=== PATIENT | female | born 1945 | race Caucasian/White ===

== ENCOUNTER → 2017-11-16 14:22 | Outpatient (CLI) | payer OTHER, MEDICARE, SELFPAY ==
[2017-11-16 14:51] LABS: Hemoglobin 13.2 g/dL (12.0-16.0); Mean Corpuscular HGB Conc 32.1 % (30-36); Mean Corpuscular Hemoglobin 24.4 PG (26-34); Platelet Count 171 X10^3/uL (150-400); Red Blood Cell Count 5.39 X10^6/uL (4.0-5.2); Red Cell Distribution Width 25.7 % (11.6-14.8); White Blood Cell Count 5.4 X10^3/uL (4.5-11.0)
[2017-11-16 14:52] LABS: HEMOLYSIS < 15 (0-50); Iron 102 ug/dL (37-170)
[2017-11-16 14:53] LABS: BUN Creatinine Ratio 23.3 (6-22); Blood Urea Nitrogen 14 mg/dL (7-17); Calcium 10.3 mg/dL (8.4-10.2); Carbon Dioxide 28 mmol/L (22-32); Chloride 101 mmol/L (98-107); Estimated Glomerular Filt Rate > 60.0 mL/min (>60); Glucose 87 mg/dL (80-110); HEMOLYSIS < 15 (0-50); Potassium 4.4 mmol/L (3.4-5.1); Sodium 139 mmol/L (137-145)
[2017-11-16 15:03] LABS: Percent Iron Saturation 29 % (15-50); Total Iron Binding Capacity 350 ug/dL (265-497); Transferrin 278 mg/dL (206-381)
[2017-11-16 15:25] LABS: Anisocytosis 2+; Hypochromasia 1+
== END ==
PROVIDERS: Visit Provider Internal Medicine
DX: D50.9 Iron deficiency anemia, unspecified (principal); E11.9 Type 2 diabetes mellitus without complications; E83.52 Hypercalcemia
CPT/HCPCS: 36415; 80048; 83540; 83550; 85027

== ENCOUNTER → 2018-03-13 07:55 | Outpatient (CLI) | payer OTHER, MEDICARE, SELFPAY ==
[2018-03-13 09:01] LABS: Hematocrit 43.5 % (36-46); Hemoglobin 14.6 g/dL (12.0-16.0); Mean Corpuscular HGB Conc 33.4 % (30-36); Mean Corpuscular Volume 86.8 fL (80-100); Platelet Count 209 X10^3/uL (150-400); Red Blood Cell Count 5.02 X10^6/uL (4.0-5.2); Red Cell Distribution Width 13.3 % (11.6-14.8); White Blood Cell Count 5.5 X10^3/uL (4.5-11.0)
[2018-03-13 09:05] LABS: Alanine Aminotransferase 16 IU/L (9-52); Albumin 4.5 g/dL (3.5-5.0); Albumin Globulin Ratio 1.6 (1.0-2.8); Alkaline Phosphatase 67 U/L (38-126); Aspartate Aminotransferase 21 IU/L (14-36); Bilirubin Total 0.6 mg/dL (0.2-1.3); Blood Urea Nitrogen 12 mg/dL (7-17); Carbon Dioxide 28 mmol/L (22-32); Chloride 101 mmol/L (98-107); Estimated Glomerular Filt Rate > 60.0 mL/min (>60); Globulin 2.8 g/dL (1.7-4.1); Glucose 98 mg/dL (80-110); HEMOLYSIS < 15 (0-50); Potassium 4.4 mmol/L (3.4-5.1); Sodium 138 mmol/L (137-145); Total Protein 7.3 g/dL (6.3-8.2)
[2018-03-13 12:04] LABS: HEMOLYSIS 16 (0-50); Iron 73 ug/dL (37-170)
[2018-03-13 12:14] LABS: Percent Iron Saturation 21 % (15-50); Total Iron Binding Capacity 341 ug/dL (265-497)
[2018-03-13 12:24] LABS: Transferrin 293 mg/dL (206-381)
== END ==
PROVIDERS: PCP Internal Medicine; Visit Provider Internal Medicine
DX: D50.9 Iron deficiency anemia, unspecified (principal); E11.9 Type 2 diabetes mellitus without complications
CPT/HCPCS: 36415; 80053; 83036; 83540; 83550; 85027

== ENCOUNTER → 2018-03-15 11:16 | Outpatient (CLI) | payer OTHER, MEDICARE, SELFPAY ==
[2018-03-15 12:17] LABS: Add Manual Diff / Slide Review NO; Basophils Percent Auto 2.3 % (0-2); Eosinophils Percent Auto 1.5 % (2-4); Hematocrit 42.9 % (36-46); Hemoglobin 14.2 g/dL (12.0-16.0); Lymphocytes Percent Auto 36.4 % (25-40); Mean Corpuscular HGB Conc 33.1 % (30-36); Mean Corpuscular Hemoglobin 28.8 PG (26-34); Mean Corpuscular Volume 86.9 fL (80-100); Monocytes Percent Auto 6.8 % (3-14); Neutrophils Absolute Auto 2600 /uL (3000-5900); Platelet Count 209 X10^3/uL (150-400); Red Blood Cell Count 4.94 X10^6/uL (4.0-5.2); Red Cell Distribution Width 13.2 % (11.6-14.8); White Blood Cell Count 4.9 X10^3/uL (4.5-11.0)
[2018-03-15 12:44] LABS: Alanine Aminotransferase 16 IU/L (9-52); Albumin 4.4 g/dL (3.5-5.0); Albumin Globulin Ratio 1.7 (1.0-2.8); Alkaline Phosphatase 59 U/L (38-126); Aspartate Aminotransferase 20 IU/L (14-36); Bilirubin Total 0.8 mg/dL (0.2-1.3); Blood Urea Nitrogen 12 mg/dL (7-17); Calcium 10.4 mg/dL (8.4-10.2); Carbon Dioxide 31 mmol/L (22-32); Chloride 100 mmol/L (98-107); Estimated Glomerular Filt Rate > 60.0 mL/min (>60); Globulin 2.6 g/dL (1.7-4.1); Glucose 95 mg/dL (80-110); HEMOLYSIS < 15 (0-50); Potassium 4.6 mmol/L (3.4-5.1); Sodium 141 mmol/L (137-145)
[2018-03-16 14:47] LABS: Parathyroid Hormone Int 40 pg/mL (14-64)
== END ==
PROVIDERS: PCP Internal Medicine; Visit Provider Internal Medicine
DX: E11.9 Type 2 diabetes mellitus without complications (principal); E83.52 Hypercalcemia; E78.5 Hyperlipidemia, unspecified
CPT/HCPCS: 36415; 80053; 83036; 83970; 85025

== ENCOUNTER → 2018-04-10 10:17 | Outpatient (CLI) | payer OTHER, MEDICARE, SELFPAY ==
--- NOTE | 2018-04-10 10:20 | DI.MG.S_ITS ---
BILATERAL DIGITAL SCREENING MAMMOGRAM 3D/2D WITH CAD: 04/10/2018 CLINICAL: Routine screening. Comparison is made to exams dated: 03/04/2017 mammogram, 03/01/2015 mammogram, and 09/26/2013 mammogram - [facility]. The tissue of both breasts is heterogeneously dense. This may lower the sensitivity of mammography. Current study was also evaluated with a Computer Aided Detection (CAD) system. No significant masses, calcifications, or other findings are seen in either breast. There has been no significant interval change. IMPRESSION: NEGATIVE There is no mammographic evidence of malignancy. A 1 year screening mammogram is recommended. This exam was interpreted at Station ID: [id number]. NOTE: For mammograms, a report in lay terms will be sent to the patient. Approximately 15% of breast malignancies will not be visualized mammographically. In the management of a palpable breast mass, a negative mammogram must not discourage biopsy of a clinically suspicious lesion. Electronically Signed By: Kaylene amador/patria:04/10/2018 13:27:58 copy to: Nilay Logan copy to: Matt aDng letter sent: Normal Exam ACR BI-RADS Category 1: Negative 3341F
== END ==
PROVIDERS: PCP Internal Medicine
DX: Z12.31 Encounter for screening mammogram for malignant neoplasm of breast (principal)
CPT/HCPCS: 77063; 77067

== ENCOUNTER → 2018-08-14 09:04 | Outpatient (CLI) | payer OTHER, MEDICARE, SELFPAY ==
[2018-08-14 10:21] LABS: Influenza A and B by PCR Rapid Negative (Negative)
== END ==
PROVIDERS: PCP Internal Medicine; Visit Provider Physician Assistant
DX: R68.89 Other general symptoms and signs (principal)
CPT/HCPCS: 87400

== ENCOUNTER → 2018-09-08 08:17 | Outpatient (CLI) | payer OTHER, MEDICARE, SELFPAY ==
[2018-09-08 10:12] LABS: Alanine Aminotransferase 22 IU/L (9-52); Albumin 4.1 g/dL (3.5-5.0); Albumin Globulin Ratio 1.5 (1.0-2.8); Alkaline Phosphatase 59 U/L (38-126); Aspartate Aminotransferase 20 IU/L (14-36); BUN Creatinine Ratio 22.9 (6-22); Bilirubin Total 0.4 mg/dL (0.2-1.3); Blood Urea Nitrogen 16 mg/dL (7-17); Carbon Dioxide 29 mmol/L (22-32); Chloride 103 mmol/L (98-107); Cholesterol 158 mg/dL (140-199); Estimated Glomerular Filt Rate > 60.0 mL/min (>60); Globulin 2.7 g/dL (1.7-4.1); Glucose 87 mg/dL (80-110); HDL Cholesterol 79 mg/dL (40-60); HEMOLYSIS < 15 (0-50); LDL Cholesterol Calculated 65 mg/dL (<100); Potassium 4.7 mmol/L (3.4-5.1); Sodium 139 mmol/L (137-145); Total Protein 6.8 g/dL (6.3-8.2); Triglycerides 69 mg/dL (35-150)
== END ==
PROVIDERS: PCP Internal Medicine; Visit Provider Internal Medicine
DX: E11.9 Type 2 diabetes mellitus without complications (principal); E78.5 Hyperlipidemia, unspecified; E83.52 Hypercalcemia
CPT/HCPCS: 36415; 80053; 80061; 83036

== ENCOUNTER 2018-09-10 21:57 | Emergency (ER) | payer OTHER, MEDICARE, SELFPAY ==
[2018-09-10 22:12] VITALS: BP 130/98; PULSE 85; RESP 16; TEMP 36.7; O2SAT 98; BMI 24.4
--- NOTE | 2018-09-10 23:08 | ED.WOUNDLAC ---
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 She was concerned with bleeding was stopping is now stopped. Related Data Home Medications Medication Instructions Recorded Confirmed ASPIRIN (Aspirin Ec) 81 mg PO QDAY #0 09/03/09 07/20/18 CHOLECALCIFEROL (VITAMIN D3) 2,000 iu PO QDAY #0 09/03/09 07/20/18 (Vitamin D3) [AYLIN RED FISH OIL] 1 cap PO QDAY #0 03/12/11 07/20/18 fexofenadine 60 mg PO Q DAY #30 10/08/12 07/20/18 gabapentin 300 mg capsule 300 mg PO BEDTIME cap 08/14/18 Previous Rx's Medication Instructions Recorded Lancets 0 dev SEE INSTRUCTIONS #100 06/25/16 Glucose: Home Monitoring Kit kit #1 09/10/16 pravastatin 20 mg tablet 20 mg PO HS #90 tab 11/20/17 azelastine 0.15 % (205.5 mcg) 1 spray NASAL BID #30 ml 03/15/18 nasal spray metformin ER 500 mg 500 mg PO BEDTIME #90 tab 07/08/18 tablet,extended release 24 hr bupropion HCl XL 300 mg 24 hr 300 mg PO QDAY #90 tab 07/09/18 tablet, extended release omeprazole 20 mg capsule,delayed 20 mg PO DAILY #90 cap 07/21/18 release fluconazole 150 mg tablet 150 mg PO ONCE #2 tab 08/23/18 Allergies Allergy/AdvReac Type Severity Reaction Status Date / Time Sulfa (Sulfonamide Allergy Mild Verified 08/14/18 09:24 Antibiotics) levofloxacin AdvReac Intermediate TENDON AND Verified 08/14/18 09:24 MUSCLE PAIN codeine AdvReac Mild GI UPSET Verified 08/14/18 09:24 morphine AdvReac Mild N/V Verified 08/14/18 09:24 oxycodone AdvReac Nausea Verified 08/14/18 09:24 Review of Systems Review of Systems GENERAL: Denies chills,fever HEENT: Denies throat pain RESPIRATORY: Denies dyspnea, cough, wheezing CARDIOVASCULAR: Denies chest pain, palpitations GASTROINTESTINAL: Denies nausea, vomiting MUSCULOSKELETAL: Denies extremity pain, injury SKIN: See HPI NEUROLOGIC: Denies weakness, dizziness, headache, numbness 8 point review of systems is negative except for those stated above and HPI PFSH Medical History Hyperlipidemia (Chronic 09/10/16) Diabetes mellitus type II, controlled (Chronic 2011) Hypercalcemia (Chronic 09/27/15) Iron deficiency anemia (Chronic 09/11/17) Asthma (Chronic 1946) Osteoarthritis (Chronic ~1999) RLS (restless legs syndrome) (Chronic) Abnormal LFTs (Chronic) GERD (gastroesophageal reflux disease) (Chronic 1989) Raynaud's syndrome (Chronic 03/12/11) Menopause present (Chronic 03/12/11) Chicken pox (Resolved 1948) Eczema (Resolved 1947) Gastric polyps (Resolved 2010) Measles (Resolved 1951) Mumps (Resolved 1952) Radicular pain of right lower back (Resolved 04/11/15) History of gastric polyp (Inactive) Surgical History Anesthesia complication (Resolved) Status post arthroscopy (Resolved 01/2014) Status post arthroscopy (Resolved 2010) Status post cholecystectomy (Resolved 2006) Status post colonoscopy (Resolved 2011) Status post hysterectomy (Resolved 2004) Family History Brother Kidney disease Diabetes mellitus Father Cancer Mother Cancer Heart disease High cholesterol Liver failure Grandfather Diabetes mellitus Grandmother Pneumonia Grandmother Pneumonia Social History marital status: number of children: 5 household members: spouse lives independently: Yes caregiver/support person: No housing: house pets and animals: Yes education level: college ([employer]) occupational status: employed current occupational exposures/hazards: Yes harjeet/confucianism: [employer] travel history: recent ([place]) leisure activities: exercise (Walking), reading and other (Sewing) Smoking Status: Never smoker Tobacco: How many years used: 0 quit status: quit date established (Never Started) second hand exposure: Yes alcohol intake: current (daily) substance use type: does not use Family History Brother Kidney disease Diabetes mellitus Father Cancer Mother Cancer Heart disease High cholesterol Liver failure Grandfather Diabetes mellitus Grandmother Pneumonia Grandmother Pneumonia Social History marital status: number of children: 5 household members: spouse lives independently: Yes caregiver/support person: No housing: house pets and animals: Yes education level: college ([employer]) occupational status: employed current occupational exposures/hazards: Yes harjeet/confucianism: [employer] travel history: recent ([place]) leisure activities: exercise (Walking), reading and other (Sewing) Smoking Status: Never smoker Tobacco: How many years used: 0 quit status: quit date established (Never Started) second hand exposure: Yes alcohol intake: current (daily) substance use type: does not use Exam Initial Vital Signs Initial Vital Signs: Vital Signs Temperature 98.1 F 09/10/18 22:12 Pulse Rate 85 09/10/18 22:12 Respiratory Rate 16 09/10/18 22:12 Blood Pressure 130/98 H 09/10/18 22:12 Pulse Oximetry 98 09/10/18 22:12 GENERAL: Well-appearing, well-nourished and in no acute distress. CARDIOVASCULAR: peripheral pulses in tact, cap refill <2 sec RESPIRATORY: No respiratory distress, speaks in full sentences without difficulty EXTREMITIES: Normal range of motion, no clubbing or edema. Neurovascularly intact NEUROLOGICAL: Cranial nerves II through XII grossly intact. Normal gait and speech. SKIN: Left middle finger laceration 0.25cm by nail not on nail bed bleeding controlled Course Vital Signs - 8 hr 09/10/18 22:12 09/10/18 23:16 Temperature 98.1 F Pulse Rate 85 74 Respiratory Rate 16 16 Blood Pressure 130/98 H Blood Pressure [Right Arm] 161/73 H Pulse Oximetry 98 99 MDM - Wound/Laceration MDM Narrative Medical decision making narrative: No need for sutures. Band-Aid is placed Discharge Plan Departure Patient Disposition: Home Clinical Impression: Laceration of left middle finger Qualifiers: Encounter type: initial encounter Damage to nail status: without damage Foreign body presence: without foreign body Qualified Code(s): S61.213A - Laceration without foreign body of left middle finger without damage to nail, initial encounter Discharge Date/Time: 09/10/18 23:15 Interventions: ED Discharge Assessment Last Done: 09/10/18 23:38 Instructions: DI for Minor Laceration Activity Restrictions/Additional Instructions: *You have been diagnosed with minor left middle finger laceration *What to do: I apply pressure if still bleeding. Keep clean with soap and water. May apply Neosporin twice daily if needed *Continue to take medications as directed *Follow up with your primary care provider in 2-3 days *Return to ER if you should have redness, pus, swelling, increased pain or any new, worsening or concerning symptoms Prescriptions: No Action gabapentin [Neurontin] 300 mg capsule 300 mg PO BEDTIME RF: 0 CHOLECALCIFEROL (VITAMIN D3) (Vitamin D3) 2,000 iu PO QDAY Qty: 0 RF: 0 ASPIRIN (Aspirin Ec) 81 mg PO QDAY Qty: 0 RF: 0 [AYLIN RED FISH OIL] 1 cap PO QDAY Qty: 0 RF: 0 fexofenadine 60 MG tablet 60 mg PO Q DAY Qty: 30 RF: 3 Lancets SEE INSTRUCTIONS Qty: 100 RF: PRN Glucose: Home Monitoring Kit Qty: 1 RF: 0 pravastatin [Pravachol] 20 mg tablet 20 mg PO HS Qty: 90 RF: 3 metformin [Glucophage XR] 500 mg tablet extended release 24 hr 500 mg PO BEDTIME Qty: 90 RF: 3 bupropion HCl 300 mg tablet extended release 24 hr 300 mg PO QDAY Qty: 90 RF: 1 omeprazole 20 mg capsule,delayed release(DR/EC) 20 mg PO DAILY Qty: 90 RF: 3 fluconazole 150 mg tablet 150 mg PO ONCE Qty: 2 RF: 0 azelastine 0.15 % (205.5 mcg) spray,non-aerosol 1 spray NASAL BID Qty: 30 RF: 2 Referrals: Monty Longo MD [Primary Care Provider] -
[2018-09-10 23:16] VITALS: BP 161/73; PULSE 74; RESP 16; O2SAT 99
--- NOTE | 2018-09-10 23:39 | PC.NURSE ---
Her wound was cleaned with soap and water at home applied dressing before discharge.
== END 2018-09-10 23:15 | disposition home or self-care (01) ==
PROVIDERS: Emergency Provider Emergency Medicine; PCP Internal Medicine
DX: S61.213A Laceration without foreign body of left middle finger without damage to nail, initial encounter (principal); W26.8XXA Contact with other sharp object(s), not elsewhere classified, initial encounter
CPT/HCPCS: 99282; 99283

== ENCOUNTER → 2018-12-16 12:33 | Outpatient (CLI) | payer OTHER, MEDICARE, SELFPAY ==
--- NOTE | 2018-12-16 12:36 | DI.RAD.S_ITS ---
PROCEDURE: FL KNEE INJECTION MR/CT LT COMPARISON: [facility], KNEE INJECTION FOR MR/CT, 01/13/2014, 9:10. INDICATIONS: INTERNAL DERANGEMENT OF LEFT KNEE The indications, alternatives, benefits, risks, and complications of the procedure were explained to the patient. Written informed consent was obtained and placed in the chart. The knee was examined fluoroscopically, and a site chosen for knee joint injection. The skin was prepped and draped in the usual fashion and 1% Lidocaine infiltrated from the skin down to the articular surface. A hypodermic needle was then introduced into the joint and iodinated contrast media was instilled to confirm the intra-articular needle tip placement. This was followed by approximately 50 mL dilute solution of a gadolinium containing MR contrast agent. The needle was removed and a bandage was applied. An Andrew wrap was then applied around the knee joint to keep the contrast from collecting in the suprapatellar recess. The patient experienced no complications throughout the procedure and left the fluoroscopic suite in no apparent distress. FINDINGS: Single fluoroscopic spot image demonstrates intra-articular location of the injected iodinated contrast. IMPRESSION: Successful fluoroscopically guided administration of dilute Gadolinium solution into the knee joint for MR arthrogram. Dictated by: Neil Alarcon M.D. on 12/16/2018 at 14:44 Approved by: Neil Alarcon M.D. on 12/16/2018 at 14:45
--- NOTE | 2018-12-16 13:41 | DI.MRI.S_ITS ---
PROCEDURE: MR KNEE LT W CON INDICATIONS: INTERNAL DERANGEMENT OF LEFT KNEE TECHNIQUE: After the administration of 50 mL of dilute intra-articular Gadolinium contrast, sagittal T1 spin echo with fat saturation and PD fast spin echo with fat saturation, coronal T1 spin echo with and without fat saturation, coronal T2 fast spin echo with fat saturation, axial PD fast spin echo with fat saturation through the knee. COMPARISON: [facility], MR, KNEE WITHOUT CONTRAST, 03/01/2015, 15:51. [facility], CR, XR KNEE ARTHRITIC SERIES LT, 11/26/2018, 14:19. [facility], MR, KNEE WITH CONTRAST, 01/13/2014, 9:43. FINDINGS: Image quality: Excellent. Menisci: Diminutive appearance involving the body of the medial meniscus. There is also fraying of the posterior horn although no definite intrasubstance tear linear signal intensity is seen. Ill-defined macerated tear involving the free margin of the body of the lateral meniscus, extending into the anterior horn. Cruciate ligaments: Anterior cruciate ligament not well visualized and there is heterogeneous signal in its expected location however, this is probably unchanged since prior study. The posterior cruciate ligament appears grossly intact. There numerous adjacent periligamentous ganglion cysts Medial structures: The medial collateral ligament appears intact. The posterior oblique ligament, semimembranosus tendon insertions, oblique popliteal ligament, and meniscocapsular junction appear intact. Visualized portions of the pes anserinus tendons appear normal. No abnormal bursal fluid. Lateral structures: The lateral collateral ligament, long and short heads of the biceps femoris tendon appear intact. The popliteus tendon appears normal; the popliteofibular ligament appears intact. The posterosuperior and anteroinferior popliteomeniscal fascicles appear intact. The arcuate and fabellofibular ligaments appear intact around the lateral inferior geniculate artery. Iliotibial band appears normal. Anterior structures: Prepatellar and superficial infrapatellar subcutaneous edema/fluid. The quadriceps and patellar tendons appear intact. Patellar alignment is normal. No femoral trochlear dysplasia or ventral trochlear prominence. Bone and cartilage: No focal marrow contusion or discrete low signal fracture line. Within the medial compartment, areas of central full-thickness loss of the tibial and femoral articular cartilage. Within the lateral compartment, mild diffuse partial-thickness loss and surface fraying of the femoral and tibial cartilage. Within the patellofemoral compartment, full-thickness patellar and femoral trochlear articular cartilage loss. Subchondral marrow cystic changes and edema as before Joint space: No López's cyst. Ill-defined low signal somewhat curvilinear focus present within the anterior intercondylar notch which could represent arthrofibrosis and/or synovial hypertrophy. Low signal 1 cm loose body seen within the medial patellar recess, image 15 series 7. IMPRESSION: Diminutive appearance of the medial meniscus body and posterior horn suggestive of postoperative changes from prior partial meniscectomy. No definite intrasubstance gadolinium signal intensity to suggest recurrent tear. Complex macerated tear involving the free margin of the body of the lateral meniscus as above, although post operative appearance is in the differential. Please correlate with surgical history. Chronic sprain versus myxoid degeneration of the anterior cruciate ligament, although grossly unchanged since prior study. Severe degenerative joint disease as above. 1 cm loose body within the medial patellar recess. Ill-defined low signal synovial hypertrophy versus arthrofibrosis at the anterior intercondylar notch. The appearance may be in part due to prominent ligamentum mucosum. Dictated by: Neil Alarcon M.D. on 12/16/2018 at 15:12 Approved by: Neil Alarcon M.D. on 12/16/2018 at 15:41
== END ==
PROVIDERS: PCP Nurse Practitioner; Visit Provider Orthopaedic Surgery
DX: S83.272A Complex tear of lateral meniscus, current injury, left knee, initial encounter (principal); M17.12 Unilateral primary osteoarthritis, left knee
CPT/HCPCS: 27369; 73722; 77002

== ENCOUNTER → 2018-12-21 07:55 | Outpatient (CLI) | payer OTHER, MEDICARE, SELFPAY ==
[2018-12-21 09:10] LABS: Hematocrit 41.8 % (36-46); Hemoglobin 13.7 g/dL (12.0-16.0); Mean Corpuscular HGB Conc 32.8 % (30-36); Mean Corpuscular Hemoglobin 26.9 PG (26-34); Mean Corpuscular Volume 82.1 fL (80-100); Platelet Count 211 X10^3/uL (150-400); Red Blood Cell Count 5.09 X10^6/uL (4.0-5.2); Red Cell Distribution Width 13.5 % (11.6-14.8)
[2018-12-21 09:43] LABS: Neutrophils Absolute Manual 4500 /uL (3000-5900); RBC Morphology Normal Morphology; Total Cells Counted 100
== END ==
PROVIDERS: PCP Nurse Practitioner; Visit Provider Nurse Practitioner
DX: D50.9 Iron deficiency anemia, unspecified (principal)
CPT/HCPCS: 36415; 85025

== ENCOUNTER → 2019-03-14 15:02 | Outpatient (CLI) | payer OTHER, SELFPAY | PROVIDERS: PCP Nurse Practitioner | DX: Z23 Encounter for immunization (principal) | CPT/HCPCS: 90471; 90662 ==

== ENCOUNTER → 2019-03-28 08:34 | Outpatient (CLI) | payer OTHER, SELFPAY ==
--- NOTE | 2019-03-28 08:35 | DI.RAD.S_ITS ---
PROCEDURE: XR CERVICAL SPINE 2V OR 3V INDICATIONS: dizziness, vertigo, r/o cerivalgenic dizzines TECHNIQUE: 3 view(s) of the cervical spine were acquired. COMPARISON: None. FINDINGS: Bones: No fractures or dislocations to the C7 level. The lateral masses of C1 appear intact on the odontoid view. No suspicious bony lesions. Multilevel degenerative endplate sclerosis and spurring. Diffuse facet arthropathy. Straightening of the normal lordotic curvature. Moderate narrowing of the C4-C5, C5-C6 and C6-C7 disc spaces. Soft tissues: No prevertebral soft tissue swelling. IMPRESSION: Multilevel cervical spondylosis most pronounced at C4-C7. Diffuse facet arthropathy Dictated by: Neil Alarcon M.D. on 03/28/2019 at 13:35 Approved by: Neil Alarcon M.D. on 03/28/2019 at 13:39
== END ==
PROVIDERS: PCP Nurse Practitioner; Visit Provider Nurse Practitioner
DX: R42 Dizziness and giddiness (principal); M47.812 Spondylosis without myelopathy or radiculopathy, cervical region
CPT/HCPCS: 72040

== ENCOUNTER → 2019-04-07 08:56 | Outpatient (CLI) | payer OTHER, MEDICARE, SELFPAY ==
[2019-04-07 09:31] LABS: Add Manual Diff / Slide Review NO; Basophils Absolute Auto 100 /uL (0-100); Basophils Percent Auto 2.6 % (0-2); Eosinophils Absolute Auto 100 /uL (0-450); Eosinophils Percent Auto 1.7 % (2-4); Hematocrit 35.4 % (36-46); Hemoglobin 11.6 g/dL (12.0-16.0); Lymphocytes Absolute Auto 1400 /uL (1100-4500); Lymphocytes Percent Auto 32.9 % (25-40); Mean Corpuscular HGB Conc 32.8 % (30-36); Mean Corpuscular Hemoglobin 26.4 PG (26-34); Mean Corpuscular Volume 80.4 fL (80-100); Monocytes Absolute Auto 300 /uL (0-900); Monocytes Percent Auto 6.9 % (3-14); Neutrophils Absolute Auto 2400 /uL (1500-7000); Neutrophils Percent Auto 55.9 % (50-75); Platelet Count 235 X10^3/uL (150-400); Red Blood Cell Count 4.41 X10^6/uL (4.0-5.2); Red Cell Distribution Width 14.3 % (11.6-14.8); White Blood Cell Count 4.3 X10^3/uL (4.5-11.0)
[2019-04-07 09:59] LABS: Hemoglobin A1C% w Est Avg Glu 5.2 % (4.0-6.0)
[2019-04-07 10:07] LABS: Alanine Aminotransferase 11 IU/L (<35); Albumin 4.3 g/dL (3.5-5.0); Albumin Globulin Ratio 1.5 (1.0-2.8); Alkaline Phosphatase 72 U/L (38-126); Aspartate Aminotransferase 24 IU/L (14-36); BUN Creatinine Ratio 18.6 (6-22); Bilirubin Total 0.7 mg/dL (0.2-1.3); Blood Urea Nitrogen 13 mg/dL (7-17); Calcium 10.1 mg/dL (8.4-10.2); Carbon Dioxide 27 mmol/L (22-32); Chloride 103 mmol/L (98-107); Estimated Glomerular Filt Rate > 60.0 mL/min (>60); Globulin 2.8 g/dL (1.7-4.1); Glucose 105 mg/dL (80-110); HEMOLYSIS < 15 (0-50); Potassium 4.3 mmol/L (3.4-5.1); Sodium 137 mmol/L (137-145); Total Protein 7.1 g/dL (6.3-8.2)
[2019-04-07 10:33] LABS: Free T3, Triiodothyronine Free 3.15 pg/mL (2.77-5.27); Free T4, Direct Thyroxine 0.98 ng/dL (0.78-2.19)
[2019-04-07 11:08] LABS: Hep C Virus Ab w/Reflex Quant NEGATIVE s/c (NEGATIVE)
== END ==
PROVIDERS: PCP Nurse Practitioner; Visit Provider Nurse Practitioner
DX: Z11.59 Encounter for screening for other viral diseases (principal); Z91.89 Other specified personal risk factors, not elsewhere classified; D50.9 Iron deficiency anemia, unspecified; E11.9 Type 2 diabetes mellitus without complications; E78.5 Hyperlipidemia, unspecified; E83.52 Hypercalcemia; R94.5 Abnormal results of liver function studies
CPT/HCPCS: 36415; 80053; 83036; 84439; 84443; 84481; 85025; 86803

== ENCOUNTER → 2019-04-13 11:25 | Outpatient (CLI) | payer OTHER, MEDICARE, SELFPAY ==
--- NOTE | 2019-04-13 | DI.MG.S_ITS ---
BILATERAL DIGITAL SCREENING MAMMOGRAM 3D/2D WITH CAD: 04/13/2019 CLINICAL: Routine screening. Comparison is made to exams dated: 04/10/2018 mammogram, 03/04/2017 mammogram, and 03/01/2015 mammogram - [facility]. The tissue of both breasts is heterogeneously dense. This may lower the sensitivity of mammography. Current study was also evaluated with a Computer Aided Detection (CAD) system. There are benign vascular calcifications in both breasts. No significant masses, calcifications, or other findings are seen in either breast. There has been no significant interval change. IMPRESSION: There is no mammographic evidence of malignancy. A 1 year screening mammogram is recommended. This exam was interpreted at Station ID: [id number]. NOTE: For mammograms, a report in lay terms will be sent to the patient. Approximately 15% of breast malignancies will not be visualized mammographically. In the management of a palpable breast mass, a negative mammogram must not discourage biopsy of a clinically suspicious lesion. Electronically Signed By: Ron ayon/patria:04/13/2019 13:09:10 copy to: Nilay Logan copy to: Matt Dang letter sent: Normal Exam ACR BI-RADS Category 2: Benign Finding(s) 3342F
== END ==
PROVIDERS: PCP Nurse Practitioner; Visit Provider Nurse Practitioner
DX: Z12.31 Encounter for screening mammogram for malignant neoplasm of breast (principal)
CPT/HCPCS: 77063; 77067

== ENCOUNTER → 2019-05-19 13:13 | Outpatient (CLI) | payer OTHER, MEDICARE, SELFPAY | PROVIDERS: PCP Nurse Practitioner; Visit Provider Nurse Practitioner | DX: Z13.820 Encounter for screening for osteoporosis (principal); M85.88 Other specified disorders of bone density and structure, other site; Z78.0 Asymptomatic menopausal state; E11.9 Type 2 diabetes mellitus without complications; Z82.62 Family history of osteoporosis; Z90.722 Acquired absence of ovaries, bilateral | CPT/HCPCS: 77080 ==

== ENCOUNTER → 2020-01-27 15:42 | Outpatient (CLI) | payer OTHER, MEDICARE, SELFPAY ==
[2020-01-28 10:35] LABS: COVID19 Sendout Not Detected (Not Detect)
== END ==
PROVIDERS: PCP Nurse Practitioner; Visit Provider Physician Assistant
DX: Z11.59 Encounter for screening for other viral diseases (principal)
CPT/HCPCS: 87635

== ENCOUNTER → 2020-03-06 00:54 | Outpatient (CLI) | payer OTHER, MEDICARE, SELFPAY | PROVIDERS: PCP Nurse Practitioner; Referring Provider Internal Medicine; Visit Provider Internal Medicine | DX: Z23 Encounter for immunization (principal) | CPT/HCPCS: 90471; 90662 ==

== ENCOUNTER → 2020-04-09 07:43 | Outpatient (CLI) | payer OTHER, MEDICARE, SELFPAY ==
[2020-04-09 08:39] LABS: Add Manual Diff / Slide Review NO; Basophils Absolute Auto 200 /uL (0-100); Eosinophils Absolute Auto 100 /uL (0-450); Eosinophils Percent Auto 3.7 % (2-4); Hematocrit 27.9 % (36-46); Hemoglobin 8.2 g/dL (12.0-16.0); Lymphocytes Absolute Auto 1300 /uL (1100-4500); Lymphocytes Percent Auto 32.2 % (25-40); Mean Corpuscular HGB Conc 29.6 % (30-36); Mean Corpuscular Hemoglobin 18.5 PG (26-34); Mean Corpuscular Volume 62.6 fL (80-100); Monocytes Absolute Auto 300 /uL (0-900); Monocytes Percent Auto 8.3 % (3-14); Neutrophils Absolute Auto 2100 /uL (1500-7000); Neutrophils Percent Auto 51.8 % (50-75); Platelet Count 267 X10^3/uL (150-400); Red Blood Cell Count 4.45 X10^6/uL (4.0-5.2); Red Cell Distribution Width 17.7 % (11.6-14.8)
[2020-04-09 08:50] LABS: Alanine Aminotransferase 11 IU/L (<35); Albumin 4.4 g/dL (3.5-5.0); Albumin Globulin Ratio 1.5 (1.0-2.8); Alkaline Phosphatase 55 U/L (38-126); Aspartate Aminotransferase 21 IU/L (14-36); BUN Creatinine Ratio 15.3 (6-22); Bilirubin Total 0.5 mg/dL (0.2-1.3); Blood Urea Nitrogen 11 mg/dL (7-17); Calcium 10.1 mg/dL (8.4-10.2); Carbon Dioxide 30 mmol/L (22-32); Chloride 104 mmol/L (98-107); Cholesterol 161 mg/dL (140-199); Estimated Glomerular Filt Rate > 60.0 mL/min (>60); Globulin 2.9 g/dL (1.7-4.1); Glucose 101 mg/dL (80-110); HDL Cholesterol 80 mg/dL (40-60); HEMOLYSIS < 15 (0-50); LDL Cholesterol Calculated 66 mg/dL (<100); Potassium 4.5 mmol/L (3.4-5.1); Sodium 138 mmol/L (137-145); Total Protein 7.3 g/dL (6.3-8.2); Triglycerides 73 mg/dL (35-150)
[2020-04-09 09:12] LABS: Free T3, Triiodothyronine Free 3.62 pg/mL (2.77-5.27); Free T4, Direct Thyroxine 0.96 ng/dL (0.78-2.19)
[2020-04-09 09:21] LABS: Hemoglobin A1C% w Est Avg Glu 5.6 % (4.0-6.0)
[2020-04-09 09:26] LABS: Thyroid Stimulating Hormone 2.12 uIU/mL (0.47-4.68)
[2020-04-09 09:59] LABS: Anisocytosis 1+; Hypochromasia 1+; Poikilocytosis 1+
[2020-04-09 10:00] LABS: Microcytosis 2+; Schistocytes 1+
[2020-04-09 10:15] LABS: Creatinine Urine Random 77.4 mg/dL
[2020-04-09 10:21] LABS: Microalbumin Urine Random < 0.6 mg/dL (0-1.6)
[2020-04-10 09:34] LABS: HEMOLYSIS < 15 (0-50); Iron 13 ug/dL (37-170)
[2020-04-10 09:45] LABS: Percent Iron Saturation 3 % (15-50); Total Iron Binding Capacity 474 ug/dL (265-497); Transferrin 377 mg/dL (206-381)
== END ==
PROVIDERS: PCP Nurse Practitioner; Referring Provider Nurse Practitioner; Visit Provider Nurse Practitioner
DX: E11.9 Type 2 diabetes mellitus without complications (principal); E78.5 Hyperlipidemia, unspecified; E83.52 Hypercalcemia; R94.5 Abnormal results of liver function studies; Z79.899 Other long term (current) drug therapy; D50.9 Iron deficiency anemia, unspecified
CPT/HCPCS: 36415; 80053; 80061; 82043; 82570; 83036; 83540; 83550; 84439; 84443; 84481; 85025

== ENCOUNTER → 2020-04-12 08:02 | Outpatient (CLI) | payer OTHER, MEDICARE, SELFPAY ==
[2020-04-12 09:49] LABS: Hematocrit 30.2 % (36-46); Hemoglobin 8.6 g/dL (12.0-16.0); Mean Corpuscular HGB Conc 28.6 % (30-36); Mean Corpuscular Hemoglobin 18.2 PG (26-34); Mean Corpuscular Volume 63.8 fL (80-100); Platelet Count 289 X10^3/uL (150-400); Red Blood Cell Count 4.74 X10^6/uL (4.0-5.2); Red Cell Distribution Width 18.2 % (11.6-14.8); White Blood Cell Count 4.3 X10^3/uL (4.5-11.0)
[2020-04-12 09:53] LABS: Reticulocyte Count, Percent 1.7 % (1.06-2.63)
[2020-04-12 10:10] LABS: BUN Creatinine Ratio 15.7 (6-22); Blood Urea Nitrogen 11 mg/dL (7-17); Calcium 10.1 mg/dL (8.4-10.2); Carbon Dioxide 28 mmol/L (22-32); Chloride 105 mmol/L (98-107); Estimated Glomerular Filt Rate > 60.0 mL/min (>60); Glucose 91 mg/dL (80-110); HEMOLYSIS 24 (0-50); Potassium 4.8 mmol/L (3.4-5.1); Sodium 137 mmol/L (137-145)
[2020-04-12 10:25] LABS: Neutrophils Absolute Manual 2580 /uL (3000-5900); Total Cells Counted 100
[2020-04-12 10:26] LABS: Anisocytosis 1+; Hypersegmented Neutrophils 2+; Hypochromasia 3+; Ovalocytes 1+
[2020-04-12 10:39] LABS: Ferritin 6 ng/mL (11-264)
[2020-04-13 05:15] LABS: Haptoglobin 101 mg/dL (42-346)
== END ==
PROVIDERS: PCP Nurse Practitioner; Referring Provider Nurse Practitioner; Visit Provider Nurse Practitioner
DX: D50.9 Iron deficiency anemia, unspecified (principal)
CPT/HCPCS: 36415; 80048; 82728; 83010; 85025; 85045; 86880

== ENCOUNTER → 2020-05-08 14:39 | Outpatient (CLI) | payer OTHER, MEDICARE, SELFPAY ==
[2020-05-08 16:22] LABS: Reticulocyte Count, Percent 1.5 % (1.06-2.63)
[2020-05-08 16:26] LABS: HEMOLYSIS < 15 (0-50); Iron 52 ug/dL (37-170)
[2020-05-08 16:27] LABS: BUN Creatinine Ratio 17.1 (6-22); Blood Urea Nitrogen 13 mg/dL (7-17); Calcium 10.5 mg/dL (8.4-10.2); Carbon Dioxide 29 mmol/L (22-32); Chloride 104 mmol/L (98-107); Estimated Glomerular Filt Rate > 60.0 mL/min (>60); Glucose 135 mg/dL (80-110); HEMOLYSIS < 15 (0-50); Potassium 3.7 mmol/L (3.4-5.1); Sodium 137 mmol/L (137-145)
[2020-05-08 16:30] LABS: Mean Corpuscular HGB Conc 29.6 % (30-36)
[2020-05-08 16:34] LABS: Hematocrit 33.6 % (36-46); Mean Corpuscular Volume 67.6 fL (80-100); Platelet Count 234 X10^3/uL (150-400); Red Blood Cell Count 4.98 X10^6/uL (4.0-5.2); Red Cell Distribution Width 22.7 % (11.6-14.8); White Blood Cell Count 4.7 X10^3/uL (4.5-11.0)
[2020-05-08 16:37] LABS: Percent Iron Saturation 12 % (15-50); Total Iron Binding Capacity 419 ug/dL (265-497); Transferrin 332 mg/dL (206-381)
[2020-05-08 17:03] LABS: Ferritin 7 ng/mL (11-264)
[2020-05-08 17:06] LABS: Neutrophils Absolute Manual 3290 /uL (3000-5900); Total Cells Counted 100
[2020-05-08 17:07] LABS: Anisocytosis 2+; Microcytosis 1+; Ovalocytes 1+; Poikilocytosis 1+
[2020-05-08 17:33] LABS: Folate > 20.0 ng/mL (2.76-20.0); Vitamin B12 222 pg/mL (239-931)
== END ==
PROVIDERS: PCP Nurse Practitioner; Referring Provider Nurse Practitioner; Visit Provider Nurse Practitioner
DX: D50.9 Iron deficiency anemia, unspecified (principal)
CPT/HCPCS: 36415; 80048; 82607; 82728; 82746; 83540; 83550; 85025; 85045

== ENCOUNTER → 2020-06-08 10:11 | Outpatient (CLI) | payer OTHER, MEDICARE, SELFPAY ==
[2020-06-08] MEDS: COVID-19 VACC(MODERNA-1)/PF 100 MCG/0.5 ML VIAL IM (10:16)
== END ==
PROVIDERS: PCP Nurse Practitioner; Visit Provider Internal Medicine
DX: Z23 Encounter for immunization (principal)
CPT/HCPCS: 0011A; 91301

== ENCOUNTER → 2020-06-23 12:52 | Outpatient (CLI) | payer OTHER, MEDICARE, SELFPAY ==
--- NOTE | 2020-06-23 12:55 | DI.MG.S_ITS ---
BILATERAL DIGITAL SCREENING MAMMOGRAM 3D/2D WITH CAD: 06/23/2020 CLINICAL: Routine screening. Comparison is made to exams dated: 04/13/2019 mammogram, 04/10/2018 mammogram, and 03/04/2017 mammogram - [facility]. The tissue of both breasts is heterogeneously dense. This may lower the sensitivity of mammography. Current study was also evaluated with a Computer Aided Detection (CAD) system. There are benign vascular calcifications in both breasts. No significant masses, calcifications, or other findings are seen in either breast. There has been no significant interval change. IMPRESSION: BENIGN There is no mammographic evidence of malignancy. A 1 year screening mammogram is recommended. This exam was interpreted at Station ID: [id number]. NOTE: For mammograms, a report in lay terms will be sent to the patient. Approximately 15% of breast malignancies will not be visualized mammographically. In the management of a palpable breast mass, a negative mammogram must not discourage biopsy of a clinically suspicious lesion. Electronically Signed By: Ron ayon/patria:06/25/2020 07:47:19 copy to: Nilay Logan copy to: Matt Dang letter sent: Normal Exam ACR BI-RADS Category 2: Benign Finding(s) 3342F
== END ==
PROVIDERS: PCP Nurse Practitioner; Referring Provider Nurse Practitioner; Visit Provider Nurse Practitioner
DX: Z12.31 Encounter for screening mammogram for malignant neoplasm of breast (principal)
CPT/HCPCS: 77063; 77067

== ENCOUNTER → 2020-06-26 11:35 | Outpatient (CLI) | payer OTHER, MEDICARE, SELFPAY ==
[2020-06-26 13:11] LABS: HEMOLYSIS < 15 (0-50); Iron 61 ug/dL (37-170)
[2020-06-26 13:15] LABS: Alanine Aminotransferase 11 IU/L (<35); Albumin 4.5 g/dL (3.5-5.0); Albumin Globulin Ratio 1.6 (1.0-2.8); Alkaline Phosphatase 61 U/L (38-126); Aspartate Aminotransferase 24 IU/L (14-36); BUN Creatinine Ratio 19.1 (6-22); Bilirubin Total 0.3 mg/dL (0.2-1.3); Blood Urea Nitrogen 13 mg/dL (7-17); Calcium 10.6 mg/dL (8.4-10.2); Carbon Dioxide 30 mmol/L (22-32); Chloride 102 mmol/L (98-107); Estimated Glomerular Filt Rate > 60.0 mL/min (>60); Globulin 2.9 g/dL (1.7-4.1); Glucose 88 mg/dL (80-110); HEMOLYSIS < 15 (0-50); Potassium 4.6 mmol/L (3.4-5.1); Sodium 137 mmol/L (137-145); Total Protein 7.4 g/dL (6.3-8.2)
[2020-06-26 13:17] LABS: Hemoglobin 12.2 g/dL (12.0-16.0); Mean Corpuscular HGB Conc 29.8 % (30-36); Mean Corpuscular Hemoglobin 22.4 PG (26-34); Platelet Count 210 X10^3/uL (150-400); Red Blood Cell Count 5.47 X10^6/uL (4.0-5.2); Red Cell Distribution Width 21.9 % (11.6-14.8); White Blood Cell Count 5.1 X10^3/uL (4.5-11.0)
[2020-06-26 13:23] LABS: Percent Iron Saturation 15 % (15-50); Total Iron Binding Capacity 414 ug/dL (265-497); Transferrin 331 mg/dL (206-381)
[2020-06-26 13:45] LABS: Ferritin 8 ng/mL (11-264)
[2020-06-26 14:15] LABS: Folate > 20.0 ng/mL (2.76-20.0)
[2020-06-26 14:49] LABS: Hypochromasia 1+; Microcytosis 1+; Neutrophils Absolute Manual 2754 /uL (3000-5900); Total Cells Counted 100
[2020-06-26 14:51] LABS: Reactive Lymphocytes 1+
== END ==
PROVIDERS: PCP Nurse Practitioner; Referring Provider Nurse Practitioner; Visit Provider Nurse Practitioner
DX: D50.9 Iron deficiency anemia, unspecified (principal); E11.9 Type 2 diabetes mellitus without complications; E83.52 Hypercalcemia
CPT/HCPCS: 36415; 80053; 82728; 82746; 83540; 83550; 85025

== ENCOUNTER → 2020-07-05 10:14 | Outpatient (CLI) | payer OTHER, MEDICARE, SELFPAY ==
[2020-07-05] MEDS: COVID-19 VACC #2, MRNA(MOD) 100 MCG/0.5 ML VIAL IM (10:18)
== END ==
PROVIDERS: PCP Nurse Practitioner; Visit Provider Internal Medicine
DX: Z23 Encounter for immunization (principal)
CPT/HCPCS: 0012A; 91301

== ENCOUNTER → 2020-08-07 07:55 | Outpatient (CLI) | payer OTHER, MEDICARE, SELFPAY ==
[2020-08-15 13:17] LABS: Urea Breath Test >18YRS Negative
== END ==
PROVIDERS: PCP Nurse Practitioner; Referring Provider Nurse Practitioner; Visit Provider Nurse Practitioner
DX: K21.9 Gastro-esophageal reflux disease without esophagitis (principal)
CPT/HCPCS: 83013

== ENCOUNTER → 2020-10-16 10:50 | Outpatient (CLI) | payer MEDICARE, OTHER, SELFPAY ==
[2020-10-16 12:16] LABS: Add Manual Diff / Slide Review NO; Basophils Absolute Auto 100 /uL (0-100); Basophils Percent Auto 2.8 % (0-2); Eosinophils Absolute Auto 100 /uL (0-450); Eosinophils Percent Auto 2.1 % (2-4); Hematocrit 44.6 % (36-46); Hemoglobin 14.3 g/dL (12.0-16.0); Lymphocytes Absolute Auto 1700 /uL (1100-4500); Lymphocytes Percent Auto 36.1 % (25-40); Mean Corpuscular Hemoglobin 27.2 PG (26-34); Mean Corpuscular Volume 84.9 fL (80-100); Monocytes Absolute Auto 400 /uL (0-900); Monocytes Percent Auto 7.4 % (3-14); Neutrophils Absolute Auto 2500 /uL (1500-7000); Neutrophils Percent Auto 51.6 % (50-75); Platelet Count 201 X10^3/uL (150-400); Red Blood Cell Count 5.25 X10^6/uL (4.0-5.2); Red Cell Distribution Width 16.2 % (11.6-14.8); White Blood Cell Count 4.8 X10^3/uL (4.5-11.0)
[2020-10-16 12:35] LABS: BUN Creatinine Ratio 17.6 (6-22); Blood Urea Nitrogen 12 mg/dL (7-17); Calcium 10.1 mg/dL (8.4-10.2); Carbon Dioxide 29 mmol/L (22-32); Chloride 102 mmol/L (98-107); Estimated Glomerular Filt Rate > 60.0 mL/min (>60); Glucose 93 mg/dL (80-110); HEMOLYSIS < 15 (0-50); Potassium 4.1 mmol/L (3.4-5.1); Sodium 136 mmol/L (137-145)
[2020-10-16 12:51] LABS: HEMOLYSIS < 15 (0-50); Iron 104 ug/dL (37-170)
[2020-10-16 13:02] LABS: Ferritin 10 ng/mL (11-264)
[2020-10-16 13:03] LABS: Percent Iron Saturation 28 % (15-50); Total Iron Binding Capacity 366 ug/dL (265-497); Transferrin 317 mg/dL (206-381)
[2020-10-17 19:01] LABS: Calcium 9.8 mg/dL (8.7-10.3); Parathyroid Hormone, Intact 50 pg/mL (15-65)
== END ==
PROVIDERS: PCP Nurse Practitioner; Referring Provider Nurse Practitioner; Visit Provider Nurse Practitioner
DX: D50.9 Iron deficiency anemia, unspecified (principal); J45.909 Unspecified asthma, uncomplicated; E83.52 Hypercalcemia
CPT/HCPCS: 36415; 80048; 82310; 82728; 83540; 83550; 83970; 85025

== ENCOUNTER → 2021-03-12 12:52 | Outpatient (CLI) | payer MEDICARE, OTHER, SELFPAY ==
--- NOTE | 2021-03-12 12:54 | DI.US.S_ITS ---
PROCEDURE: US ABDOMEN LIMITED INDICATIONS: SUSPECTED INGUINAL HERNIA, LT INGUINAL PAIN TECHNIQUE: Real-time focused scanning was performed of the inguinal region, with image documentation. COMPARISON: [facility], , ABDOMEN LIMITED, 09/05/2011, 16:02. FINDINGS: A fat containing inguinal hernia is seen in the area of clinical concern, left groin, with defect measuring approximately 1.1 cm. The hernia appears to reduce. IMPRESSION: Fat containing left inguinal hernia as detailed above. Dictated by: Artie Miller M.D. on 03/12/2021 at 13:56 Approved by: Artie Miller M.D. on 03/12/2021 at 13:58
== END ==
PROVIDERS: PCP Nurse Practitioner; Referring Provider Nurse Practitioner; Visit Provider Nurse Practitioner
DX: R10.32 Left lower quadrant pain (principal); K40.90 Unilateral inguinal hernia, without obstruction or gangrene, not specified as recurrent
CPT/HCPCS: 76705

== ENCOUNTER → 2021-03-15 11:47 | Outpatient (CLI) | payer MEDICARE, OTHER, SELFPAY | PROVIDERS: PCP Nurse Practitioner; Referring Provider Internal Medicine; Visit Provider Internal Medicine | DX: Z23 Encounter for immunization (principal) | CPT/HCPCS: 90471; 90662 ==

== ENCOUNTER → 2021-04-05 08:36 | Outpatient (CLI) | payer MEDICARE, OTHER, SELFPAY ==
[2021-04-05] MEDS: COVID-19 VACC #3, MRNA(MOD) 50 MCG/0.25 ML VIAL IM (08:41)
== END ==
PROVIDERS: PCP Nurse Practitioner; Visit Provider Internal Medicine
DX: Z23 Encounter for immunization (principal)
CPT/HCPCS: 0013A; 91301

== ENCOUNTER → 2021-04-09 09:27 | Outpatient (CLI) | payer MEDICARE, OTHER, SELFPAY ==
[2021-04-09 10:20] LABS: COVID19 -Nasal RAPID Negative (Negative)
== END ==
PROVIDERS: PCP Nurse Practitioner; Referring Provider Surgery; Visit Provider Surgery
DX: Z01.812 Encounter for preprocedural laboratory examination (principal); Z20.822 Contact with and (suspected) exposure to COVID-19
CPT/HCPCS: 87635; C9803

== ENCOUNTER 2021-04-10 09:24 | Day surgery (SDC) | payer MEDICARE, OTHER, SELFPAY ==
[2021-04-05 11:04] VITALS: BMI 23.0
[2021-04-10] VITALS (8 sets, daily range): BP systolic 102–144; BP diastolic 55–79; PULSE 58–96; RESP 12–23; TEMP 36.2–36.8; O2SAT 95–98; BMI 23.0
[2021-04-10] MEDS: LACTATED RINGERS 1,000 ML 100 ML IV (10:14)
--- NOTE | 2021-04-10 10:31 | PM.PREOP ---
Pre-operative Note Interval Note History & Physical reviewed/Exam performed by Physician: Yes Changes to H&P: No
--- NOTE | 2021-04-10 10:36 | SUR.OPER ---
Supine on padded OR bed, head on pillow, arms secured on padded arm boards at <90 degrees abduction, legs uncrossed, safety belt at thigh, tape over blanket over lower legs.
[2021-04-10] MEDS: CEFAZOLIN 1 GM VIAL 2 GM IV (11:00)
[2021-04-10] MEDS: BUPIVACAINE 0.25% (PF) VIAL 30 ML INJ (11:16)
[2021-04-10] MEDS: ACETAMINOPHEN 325 MG TABLET 650 MG PO (12:19)
[2021-04-10] MEDS: TRAMADOL 50 MG TABLET PO (12:55)
--- NOTE | 2021-04-10 14:07 | PM.OP.1 ---
Operative Date/Time/Diagnoses Date of procedure: 04/10/21 Time of procedure: 14:07 Pre-op diagnosis: Left inguinal hernia Post-op diagnosis: same Procedure & Clinicians Procedure: open left inguinal hernia repair with mesh Same procedure as scheduled: Yes Indications: reducible left inguinal hernia Surgeon: Daljit Wilson Yes if Unassisted: Yes Anesthesia Type: General Operative Notes Findings: direct floor defect Specimen(s): none sent Estimated Blood Loss (mL): 20 Procedure in detail: The patient was placed supine on the table and bilateral lower extremity compression devices were applied. Anesthesia was induced they were intubated with an LMA and received 2g of Ancef. A time-out was performed. They were prepped and draped in sterile fashion. The left external inguinal ring and the anterior superior iliac crest were identified and marked. 1 finger breath above the inguinal ligament the skin was infiltrated with 0.25% bupivacaine. The skin incision was made here and the subcutaneous tissues were divided with electrocautery exposing the external oblique aponeurosis which was then opened along the direction of its fibers. Using blunt dissection the internal oblique aporneurosis was from the external oblique upper leaflet to identify the iliohypogastric nerve. There was a large direct floor defect within the inguinal canal. The floor was opened and it contained viable omentum. A mesh plug was placed into the direct floor defect secured to the internal oblique aponeurosis in the inguinal ligament and then the inguinal ligament was reapproximated to the shelving and over the plug using Ethibond suture. The ileal hypogastric nerve was sharply divided its and buried within the muscle because it would be entrapped by the mesh. I selected a 7x 15 cm lightweight Pro Loop hernia mesh. The inferior medial aspect of the mesh was anchored to insertion of the rectus muscle to the pubic tubercle such that there was approximately 2 cm of tubercle overlap with Ethibond and then was run continuously along the inferior edge of the mesh to the shelving edge of the inguinal ligament. Interrupted 3 0 Vicryl suture was used to anchor the superior aspect of the mesh to the conjoined tendon in several places. The tails of the mesh were excised. The repair was checked for hemostasis. The wound was irrigated with sterile saline. The external oblique aponeurosis was reapproximated in a running fashion using 3 0 Vicryl. The subcutaneous tissues were reapproximated with 3 0 Vicryl skin closed with 4 0 Monocryl followed by the application of Dermabond. The sponge instrument count at the end operation was correct. The patient emerged from anesthesia was extubated and transferred to the postoperative care unit in stable condition. A total of 30 ml of of 0.25% bupivicaine was used to infiltrate the skin. Complications: none Post-operative Condition: stable Disposition: same day surgery
== END 2021-04-10 13:16 | disposition home or self-care (01) ==
PROVIDERS: PCP Nurse Practitioner; Referring Provider Surgery; Visit Provider Surgery
PROC: (CPT 49505; principal; 2021-04-10 11:15)
DX: K40.90 Unilateral inguinal hernia, without obstruction or gangrene, not specified as recurrent (principal); E11.9 Type 2 diabetes mellitus without complications; E78.00 Pure hypercholesterolemia, unspecified; K21.9 Gastro-esophageal reflux disease without esophagitis; Z79.84 Long term (current) use of oral hypoglycemic drugs; J45.909 Unspecified asthma, uncomplicated
CPT/HCPCS: 49505; 82962; C1781; J0690; J2704; J3010

== ENCOUNTER → 2021-05-21 14:31 | Outpatient (CLI) | payer MEDICARE, OTHER, SELFPAY | PROVIDERS: PCP Nurse Practitioner; Referring Provider Nurse Practitioner; Visit Provider Nurse Practitioner | DX: M85.88 Other specified disorders of bone density and structure, other site (principal); E11.9 Type 2 diabetes mellitus without complications; Z78.0 Asymptomatic menopausal state; Z90.722 Acquired absence of ovaries, bilateral; Z82.62 Family history of osteoporosis | CPT/HCPCS: 77080 ==

== ENCOUNTER → 2021-07-03 16:39 | Outpatient (CLI) | payer MEDICARE, OTHER, SELFPAY ==
--- NOTE | 2021-07-03 17:35 | DI.MG.S_ITS ---
BILATERAL DIGITAL SCREENING MAMMOGRAM 3D/2D WITH CAD: 07/03/2021 CLINICAL: Routine screening. Comparison is made to exams dated: 06/23/2020 mammogram, 04/13/2019 mammogram, and 04/10/2018 mammogram - [facility]. The tissue of both breasts is heterogeneously dense. This may lower the sensitivity of mammography. Current study was also evaluated with a Computer Aided Detection (CAD) system. There are benign vascular calcifications in both breasts. No significant masses, calcifications, or other findings are seen in either breast. There has been no significant interval change. IMPRESSION: BENIGN There is no mammographic evidence of malignancy. A 1 year screening mammogram is recommended. This exam was interpreted at Station ID: [id number]. NOTE: For mammograms, a report in lay terms will be sent to the patient. Approximately 15% of breast malignancies will not be visualized mammographically. In the management of a palpable breast mass, a negative mammogram must not discourage biopsy of a clinically suspicious lesion. Electronically Signed By: Ron ayon/patria:07/04/2021 09:52:39 copy to: Nilay Logan copy to: Matt Dang letter sent: Normal Exam ACR BI-RADS Category 2: Benign Finding(s) 3342F
== END ==
PROVIDERS: PCP Nurse Practitioner; Referring Provider Nurse Practitioner; Visit Provider Nurse Practitioner
DX: Z12.31 Encounter for screening mammogram for malignant neoplasm of breast (principal)
CPT/HCPCS: 77063; 77067

== ENCOUNTER → 2021-08-02 09:52 | Outpatient (CLI) | payer MEDICARE, OTHER, SELFPAY ==
[2021-08-02 10:23] LABS: Add Manual Diff / Slide Review NO; Basophils Absolute Auto 100 /uL (0-100); Basophils Percent Auto 2.7 % (0-2); Eosinophils Absolute Auto 100 /uL (0-450); Eosinophils Percent Auto 1.8 % (2-4); Hematocrit 43.8 % (36-46); Hemoglobin 14.5 g/dL (12.0-16.0); Lymphocytes Absolute Auto 1500 /uL (1100-4500); Lymphocytes Percent Auto 30.6 % (25-40); Mean Corpuscular Hemoglobin 28.2 PG (26-34); Mean Corpuscular Volume 85.6 fL (80-100); Monocytes Absolute Auto 300 /uL (0-900); Monocytes Percent Auto 6.7 % (3-14); Neutrophils Absolute Auto 2800 /uL (1500-7000); Neutrophils Percent Auto 58.2 % (50-75); Platelet Count 180 X10^3/uL (150-400); Red Blood Cell Count 5.12 X10^6/uL (4.0-5.2); Red Cell Distribution Width 13.7 % (11.6-14.8); White Blood Cell Count 4.9 X10^3/uL (4.5-11.0)
[2021-08-02 10:37] LABS: Hemoglobin A1C% w Est Avg Glu 5.1 % (4.0-6.0)
[2021-08-02 10:47] LABS: Alanine Aminotransferase 10 IU/L (<35); Albumin 4.5 g/dL (3.5-5.0); Albumin Globulin Ratio 1.6 (1.0-2.8); Alkaline Phosphatase 58 U/L (38-126); Aspartate Aminotransferase 22 IU/L (14-36); BUN Creatinine Ratio 18.3 (6-22); Bilirubin Total 0.7 mg/dL (0.2-1.3); Blood Urea Nitrogen 13 mg/dL (7-17); Calcium 10.5 mg/dL (8.4-10.2); Carbon Dioxide 30 mmol/L (22-32); Chloride 103 mmol/L (98-107); Cholesterol 189 mg/dL (140-199); Estimated Glomerular Filt Rate > 60.0 mL/min (>60); Globulin 2.8 g/dL (1.7-4.1); Glucose 104 mg/dL (80-110); HEMOLYSIS < 15 (0-50); Potassium 4.5 mmol/L (3.4-5.1); Sodium 138 mmol/L (137-145); Total Protein 7.3 g/dL (6.3-8.2); Triglycerides 79 mg/dL (35-150)
[2021-08-02 10:54] LABS: HDL Cholesterol 110 mg/dL (40-60); LDL Cholesterol Calculated 63 mg/dL (<100)
[2021-08-02 11:08] LABS: Thyroid Stimulating Hormone 1.33 uIU/mL (0.47-4.68)
[2021-08-02 18:27] LABS: Microalbumin Urine Random < 0.6 mg/dL (0-1.6)
== END ==
PROVIDERS: PCP Nurse Practitioner; Referring Provider Nurse Practitioner; Visit Provider Nurse Practitioner
DX: D50.9 Iron deficiency anemia, unspecified (principal); E11.9 Type 2 diabetes mellitus without complications; E78.5 Hyperlipidemia, unspecified; E83.52 Hypercalcemia
CPT/HCPCS: 36415; 80053; 80061; 82043; 82570; 83036; 84443; 85025

== ENCOUNTER → 2021-08-08 09:04 | Outpatient (ROUT) | payer MEDICARE, OTHER, SELFPAY ==
[2021-08-09 16:10] LABS: Fecal Immunochemical Test Negative (Negative)
== END ==
PROVIDERS: PCP Nurse Practitioner; Visit Provider Nurse Practitioner
DX: Z12.11 Encounter for screening for malignant neoplasm of colon (principal)
CPT/HCPCS: 82274

== ENCOUNTER → 2022-03-11 09:02 | Outpatient (CLI) | payer MEDICARE, OTHER, SELFPAY ==
[2022-03-11 10:17] LABS: Add Manual Diff / Slide Review NO; Basophils Absolute Auto 100 /uL (0-100); Basophils Percent Auto 2.3 % (0-2); Eosinophils Absolute Auto 100 /uL (0-450); Eosinophils Percent Auto 1.2 % (2-4); Hematocrit 41.7 % (36-46); Hemoglobin 14.1 g/dL (12.0-16.0); Lymphocytes Absolute Auto 1300 /uL (1100-4500); Lymphocytes Percent Auto 22.4 % (25-40); Mean Corpuscular HGB Conc 33.8 % (30-36); Mean Corpuscular Hemoglobin 29.5 PG (26-34); Mean Corpuscular Volume 87.3 fL (80-100); Monocytes Absolute Auto 300 /uL (0-900); Monocytes Percent Auto 5.8 % (3-14); Neutrophils Absolute Auto 3800 /uL (1500-7000); Neutrophils Percent Auto 68.3 % (50-75); Platelet Count 192 X10^3/uL (150-400); Red Blood Cell Count 4.77 X10^6/uL (4.0-5.2); Red Cell Distribution Width 13.8 % (11.6-14.8); White Blood Cell Count 5.6 X10^3/uL (4.5-11.0)
[2022-03-11 10:28] LABS: Hemoglobin A1C% w Est Avg Glu 4.9 % (4.0-6.0)
[2022-03-11 10:47] LABS: Alanine Aminotransferase 9 IU/L (<35); Albumin 4.4 g/dL (3.5-5.0); Albumin Globulin Ratio 1.5 (1.0-2.8); Alkaline Phosphatase 59 U/L (38-126); Aspartate Aminotransferase 20 IU/L (14-36); BUN Creatinine Ratio 15.7 (6-22); Bilirubin Total 0.6 mg/dL (0.2-1.3); Blood Urea Nitrogen 11 mg/dL (7-17); Calcium 10.1 mg/dL (8.4-10.2); Carbon Dioxide 27 mmol/L (22-32); Chloride 98 mmol/L (98-107); Estimated Glomerular Filt Rate > 60 mL/min (>60); Glucose 91 mg/dL (80-110); HEMOLYSIS < 15 (0-50); Potassium 4.7 mmol/L (3.4-5.1); Sodium 136 mmol/L (137-145); Total Protein 7.4 g/dL (6.3-8.2)
[2022-03-11 11:10] LABS: Thyroid Stimulating Hormone 1.18 uIU/mL (0.47-4.68)
== END ==
PROVIDERS: PCP Nurse Practitioner; Referring Provider Nurse Practitioner; Visit Provider Nurse Practitioner
DX: E11.9 Type 2 diabetes mellitus without complications (principal); D50.9 Iron deficiency anemia, unspecified; E83.52 Hypercalcemia; R53.83 Other fatigue
CPT/HCPCS: 36415; 80053; 83036; 84443; 85025

== ENCOUNTER → 2022-03-25 16:07 | Outpatient (CLI) | payer MEDICARE, OTHER, SELFPAY | PROVIDERS: PCP Nurse Practitioner; Referring Provider Internal Medicine; Visit Provider Internal Medicine | DX: Z23 Encounter for immunization (principal) | CPT/HCPCS: 90471; 90662 ==

== ENCOUNTER → 2022-07-10 12:25 | Outpatient (CLI) | payer MEDICARE, OTHER, SELFPAY ==
[2022-07-10 13:59] LABS: COVID-19 CEPHEID 4-PLEX PCR Negative (Negative); Influenza A - CEPHEID Flu A NEGATIVE (NEGATIVE); Influenza B - CEPHEID Flu B NEGATIVE (NEGATIVE); Respiratory Syncytial Virus Negative (Negative)
== END ==
PROVIDERS: PCP Nurse Practitioner; Visit Provider Nurse Practitioner Family
DX: Z20.828 Contact with and (suspected) exposure to other viral communicable diseases (principal); R09.81 Nasal congestion
CPT/HCPCS: 0241U

== ENCOUNTER → 2022-08-05 15:03 | Outpatient (CLI) | payer MEDICARE, OTHER, SELFPAY ==
--- NOTE | 2022-08-05 | DI.MG.S_ITS ---
BILATERAL DIGITAL SCREENING MAMMOGRAM 3D/2D WITH CAD: 08/05/2022 CLINICAL: Routine screening. Comparison is made to exams dated: 07/03/2021 mammogram, 06/23/2020 mammogram, 04/13/2019 mammogram, and 04/10/2018 mammogram - [facility]. Both breasts are heterogeneously dense, which may obscure small masses (category c / 51-75% glandular tissue). Current study was also evaluated with a Computer Aided Detection (CAD) system. There are benign vascular calcifications in both breasts. No significant masses, calcifications, or other findings are seen in either breast. There has been no significant interval change. IMPRESSION: BENIGN There is no mammographic evidence of malignancy. A 1 year screening mammogram is recommended. Based on the Tyrer Cuzick model (a risk assessment model) the patient's lifetime risk is 4.3% and her 10 year risk is 0.0%. According to the ACR, ACS, and NCCN guidelines, an annual breast MRI exam along with mammogram is recommended if the patient's lifetime risk is 20% or greater. This exam was interpreted at Station ID: [id number]. NOTE: For mammograms, a report in lay terms will be sent to the patient. Approximately 15% of breast malignancies will not be visualized mammographically. In the management of a palpable breast mass, a negative mammogram must not discourage biopsy of a clinically suspicious lesion. Electronically Signed By: Dg rendon/patria:08/06/2022 09:15:38 letter sent: Normal Exam ACR BI-RADS Category 2: Benign Finding(s) 3342F
== END ==
PROVIDERS: PCP Nurse Practitioner; Referring Provider Nurse Practitioner; Visit Provider Nurse Practitioner
DX: Z12.31 Encounter for screening mammogram for malignant neoplasm of breast (principal)
CPT/HCPCS: 77063; 77067

== ENCOUNTER → 2022-09-11 09:02 | Outpatient (CLI) | payer MEDICARE, OTHER, SELFPAY ==
[2022-09-11 11:41] LABS: Alanine Aminotransferase 14 IU/L (<35); Albumin 4.3 g/dL (3.5-5.0); Albumin Globulin Ratio 1.5 (1.0-2.8); Alkaline Phosphatase 64 U/L (38-126); Aspartate Aminotransferase 23 IU/L (14-36); BUN Creatinine Ratio 21.2 (6-22); Bilirubin Total 0.7 mg/dL (0.2-1.3); Blood Urea Nitrogen 14 mg/dL (7-17); Calcium 10.2 mg/dL (8.4-10.2); Carbon Dioxide 29 mmol/L (22-32); Chloride 102 mmol/L (98-107); Estimated Glomerular Filt Rate > 60 mL/min (>60); Globulin 2.9 g/dL (1.7-4.1); Glucose 99 mg/dL (80-110); HEMOLYSIS < 15 (0-50); Potassium 4.9 mmol/L (3.4-5.1); Sodium 138 mmol/L (137-145); Total Protein 7.2 g/dL (6.3-8.2)
[2022-09-11 12:13] LABS: Creatinine Urine Random 54.9 mg/dL
[2022-09-11 12:18] LABS: Microalbumi Creatinin Ratio Ur 12.7 ug/mg CR (<30); Microalbumin Urine Random 0.7 mg/dL (0-1.6)
[2022-09-12 05:14] LABS: x Labcorp Estim. Avg Glu (eAG) 108 mg/dL (.); x Labcorp Hemoglobin A1c 5.4 % (4.8-5.6)
== END ==
PROVIDERS: PCP Nurse Practitioner; Referring Provider Nurse Practitioner; Visit Provider Nurse Practitioner
DX: Z79.899 Other long term (current) drug therapy (principal); E11.9 Type 2 diabetes mellitus without complications
CPT/HCPCS: 36415; 80053; 82043; 82570; 83036

== ENCOUNTER → 2022-11-10 16:07 | Outpatient (CLI) | payer MEDICARE, OTHER, SELFPAY ==
[2022-11-10 18:07] LABS: Add Manual Diff / Slide Review NO; Basophils Absolute Auto 100 /uL (0-100); Basophils Percent Auto 2.2 % (0-2); Eosinophils Absolute Auto 100 /uL (0-450); Eosinophils Percent Auto 1.4 % (2-4); Hematocrit 43.1 % (36-46); Hemoglobin 14.5 g/dL (12.0-16.0); Lymphocytes Absolute Auto 1800 /uL (1100-4500); Lymphocytes Percent Auto 34.9 % (25-40); Mean Corpuscular HGB Conc 33.7 % (30-36); Mean Corpuscular Hemoglobin 28.9 PG (26-34); Mean Corpuscular Volume 85.7 fL (80-100); Monocytes Absolute Auto 300 /uL (0-900); Monocytes Percent Auto 5.8 % (3-14); Neutrophils Absolute Auto 2900 /uL (1500-7000); Neutrophils Percent Auto 55.7 % (50-75); Platelet Count 189 X10^3/uL (150-400); Red Blood Cell Count 5.03 X10^6/uL (4.0-5.2); Red Cell Distribution Width 12.7 % (11.6-14.8); White Blood Cell Count 5.1 X10^3/uL (4.5-11.0)
[2022-11-10 18:24] LABS: Free T3, Triiodothyronine Free 3.42 pg/mL (2.77-5.27); Free T4, Direct Thyroxine 1.02 ng/dL (0.78-2.19)
[2022-11-10 18:38] LABS: Thyroid Stimulating Hormone 1.83 uIU/mL (0.47-4.68)
== END ==
PROVIDERS: PCP Nurse Practitioner; Referring Provider Nurse Practitioner; Visit Provider Nurse Practitioner
DX: D50.9 Iron deficiency anemia, unspecified (principal); F41.9 Anxiety disorder, unspecified
CPT/HCPCS: 36415; 84439; 84443; 84481; 85025

== ENCOUNTER → 2022-11-13 15:34 | Outpatient (CLI) | payer MEDICARE, OTHER, SELFPAY ==
[2022-11-14 10:43] LABS: Fecal Immunochemical Test Negative (Negative)
== END ==
PROVIDERS: PCP Nurse Practitioner; Referring Provider Nurse Practitioner; Visit Provider Nurse Practitioner
DX: E61.1 Iron deficiency (principal)
CPT/HCPCS: 82274

== ENCOUNTER → 2022-11-20 10:57 | Outpatient (CLI) | payer MEDICARE, OTHER, SELFPAY ==
[2022-11-20 12:27] LABS: BUN Creatinine Ratio 17.1 (6-22); Blood Urea Nitrogen 12 mg/dL (7-17); Calcium 10.4 mg/dL (8.4-10.2); Carbon Dioxide 34 mmol/L (22-32); Chloride 101 mmol/L (98-107); Estimated Glomerular Filt Rate > 60 mL/min (>60); Glucose 96 mg/dL (80-110); HEMOLYSIS < 15 (0-50); Sodium 136 mmol/L (137-145)
[2022-11-20 12:44] LABS: Potassium 5.5 mmol/L (3.4-5.1)
== END ==
PROVIDERS: PCP Nurse Practitioner; Referring Provider Nurse Practitioner; Visit Provider Nurse Practitioner
DX: Z01.810 Encounter for preprocedural cardiovascular examination (principal)
CPT/HCPCS: 36415; 80048

== ENCOUNTER → 2022-11-24 11:34 | Outpatient (CLI) | payer MEDICARE, OTHER, SELFPAY ==
--- NOTE | 2022-11-24 11:35 | DI.CT.S_ITS ---
PROCEDURE: CT CHEST ABD PEL W CON INDICATIONS: weight loss TECHNIQUE: After the administration of oral and intravenous contrast, axial sections acquired from the supraclavicular neck to the pubic symphysis. Coronal and sagittal reformats were performed. For radiation dose reduction, the following was used: automated exposure control, adjustment of mA and/or kV according to patient size. COMPARISON: [facility], CT, IVP (ABD & PEL WWO CONTRAST), 09/21/2017, 12:22. [facility], CT, CHEST ABDOMEN WITH CONTRAST, 09/25/2011, 12:15. FINDINGS: CHEST: Lower Neck: No enlarged lymph nodes. Axillae: No enlarged lymph nodes. Lungs: No consolidation or pleural effusion. No definite suspicious nodules identified. Heart:. Trace pericardial effusion. Multivessel coronary artery calcifications and/or stents. Thoracic Vessels: The aorta and pulmonary arteries demonstrate normal size. Mediastinum and Letty: No enlarged lymph nodes. Esophagus: No wall thickening. ABDOMEN: Liver: Unremarkable. Gallbladder: Absent Biliary ducts: Unremarkable. Pancreas: Unremarkable. Spleen: Unremarkable. Adrenal Glands: Unremarkable. Kidneys and Ureters: No hydronephrosis. Stomach and Bowel: Large paraesophageal hernia present with approximately half of the stomach intrathoracic and rotated. No evidence of mechanical small bowel obstruction. Peritoneum: No abnormal intraperitoneal fluid. No free air. Ventral Wall: Similar ill-defined soft tissue in the epigastric region, not substantially changed since at least 2011, probably scar tissue. Abdominal Nodes: No retroperitoneal or mesenteric adenopathy by size criteria. Vessels: Aorta and inferior vena cava are normal in size. PELVIS: Pelvic Organs: The uterus is not visualized and is presumed surgically absent. Bladder: Unremarkable. Pelvic Nodes: No enlarged lymph nodes. Miscellaneous: Possible small fat containing right inguinal hernia. Bones: Multilevel degenerative change of the visualized spine. IMPRESSION: 1. Large paraesophageal hernia present with approximately half of the stomach intrathoracic. 2. Other findings as above. Dictated by: Pineda Bedolla M.D. on 11/24/2022 at 16:18 Approved by: Pineda Bedolla M.D. on 11/24/2022 at 16:37
== END ==
PROVIDERS: PCP Nurse Practitioner; Referring Provider Nurse Practitioner; Visit Provider Nurse Practitioner
DX: E61.1 Iron deficiency (principal); R63.4 Abnormal weight loss; K44.9 Diaphragmatic hernia without obstruction or gangrene
CPT/HCPCS: 71260; 74177; Q9967

== ENCOUNTER → 2022-11-26 12:19 | Outpatient (CLI) | payer MEDICARE, OTHER, SELFPAY ==
[2022-11-26 13:41] LABS: BUN Creatinine Ratio 17.5 (6-22); Blood Urea Nitrogen 11 mg/dL (7-17); Calcium 10.5 mg/dL (8.4-10.2); Carbon Dioxide 29 mmol/L (22-32); Chloride 99 mmol/L (98-107); Estimated Glomerular Filt Rate > 60 mL/min (>60); Glucose 89 mg/dL (80-110); HEMOLYSIS < 15 (0-50); Sodium 135 mmol/L (137-145)
[2022-11-28 07:19] LABS: Calcium 10.5 mg/dL (8.7-10.3); Parathyroid Hormone, Intact 35 pg/mL (15-65)
== END ==
PROVIDERS: PCP Nurse Practitioner; Referring Provider Nurse Practitioner; Visit Provider Nurse Practitioner
DX: E83.52 Hypercalcemia (principal); E87.5 Hyperkalemia
CPT/HCPCS: 80048; 82310; 83970

== ENCOUNTER 2022-11-28 23:39 | Emergency (ER) | payer MEDICARE, OTHER, SELFPAY ==
[2022-11-28 23:44] VITALS: O2SAT 95
[2022-11-28 23:45] VITALS: BP 127/98; PULSE 75; O2SAT 99
[2022-11-28 23:46] VITALS: BP 127/98; PULSE 78; RESP 16; TEMP 36.6; O2SAT 98; BMI 21.4
--- NOTE | 2022-11-28 23:47 | ED_ITS ---
HPI - General Adult General Chief complaint: Abdominal Pain Stated complaint: Severe ABD pain Time Seen by Provider: 11/28/22 23:47 History of Present Illness HPI narrative: 77-year-old female with history of asthma, diabetes, iron deficiency, hiatal hernia recently diagnosed with discussions of possible Joshua fundoplication presents with a chief complaint of an episode of severe abdominal pain earlier tonight that resolved prior to her arrival. She is now feeling fine unwell, free of complaint. Related Data Home Medications Medication Instructions Recorded Confirmed aspirin 81 mg tablet,delayed 81 mg PO DAILY ##0 09/03/09 09/24/22 release (Eula Low Dose Aspirin) krill oil 500 mg capsule 500 mg PO DAILY ##0 03/12/11 09/24/22 fexofenadine 60 mg tablet 60 mg PO Q DAY PRN Itching ##30 10/08/12 09/24/22 Garden of Life Iron See Rx Instructions PO DAILY 09/24/22 09/24/22 Previous Rx's Medication Instructions Recorded estradiol 0.01% (0.1 mg/gram) See Rx Instructions .Route 03/07/21 vaginal cream .COMPLEX #42.5 grams blood sugar diagnostic (Blood #100 ea 07/02/21 Glucose Test strips) blood sugar diagnostic (Blood #50 ea 07/02/21 Glucose Test strips) blood-glucose meter #1 ea 07/02/21 blood-glucose meter (Blood Glucose #1 ea 07/02/21 Monitoring kit) albuterol sulfate 2.5 mg/3 mL 2.5 mg (3 mL) inhalation Q4-6H PRN 11/04/21 (0.083 %) solution for nebulization SOB, wheezing, cough #90 mL ipratropium bromide 42 mcg (0.06 See Rx Instructions .Route 02/18/22 %) nasal spray .COMPLEX #15 mL cholecalciferol (vitamin D3) 50 50 mcg PO DAILY #180 caps 03/12/22 mcg (2,000 unit) capsule trazodone 50 mg tablet See Rx Instructions .Route 03/24/22 .COMPLEX #180 tabs pravastatin 20 mg tablet See Rx Instructions .Route 04/16/22 .COMPLEX #90 tabs NEBULIZER MASK ADULT See Rx Instructions .Route 04/28/22 .COMPLEX #1 kit betamethasone dipropionate 0.05 % See Rx Instructions .Route 05/12/22 topical cream .COMPLEX #15 grams oxyquinoline 0.025 %-sodium lauryl See Rx Instructions .Route 08/11/22 sulfate 0.01 % vaginal gel .COMPLEX #113.4 grams (Trimo-Mandel Jelly) lancets #1 pkg 09/22/22 valacyclovir 1 gram tablet See Rx Instructions .Route 09/22/22 .COMPLEX #30 tabs bupropion HCl 300 mg 24 hr tablet, 300 mg PO QAM #90 tabs 09/24/22 extended release omeprazole 40 mg capsule,delayed 40 mg PO DAILY #180 caps 10/13/22 release Naltrexone See Rx Instructions .Route 11/10/22 .COMPLEX #90 tabs alprazolam 0.25 mg tablet 0.25 mg PO DAILY PRN anxiety #30 11/10/22 tabs Allergies Allergy/AdvReac Type Severity Reaction Status Date / Time Sulfa (Sulfonamide Allergy Mild Unknown Verified 11/28/22 23:46 Antibiotics) per pt diclofenac AdvReac Severe Elevated Verified 11/28/22 23:46 [From Inflatherm LFTs, (diclofenac-trolam)] elevated Kidney Function Tests morphine AdvReac Severe N/V Verified 11/28/22 23:46 trolamine salicylate AdvReac Severe Elevated Verified 11/28/22 23:46 [From Inflatherm LFTs, (diclofenac-trolam)] elevated Kidney Function Tests levofloxacin AdvReac Intermediate TENDON AND Verified 11/28/22 23:46 MUSCLE PAIN codeine AdvReac Mild GI UPSET, Verified 11/28/22 23:46 vomiting oxycodone AdvReac Nausea, Verified 11/28/22 23:46 abdominal pain Review of Systems Review of Systems Narrative: GENERAL: Denies chills, fatigue, malaise, fever, sweats. HEENT: Denies sinus pain, ear pain, sore throat, difficulty swallowing, dizziness. RESPIRATORY: Denies dyspnea, cough, wheezing, hemoptysis, sputum. CARDIOVASCULAR: Denies chest pain, palpitations, orthopnea, edema, GASTROINTESTINAL: See HPI : Denies dysuria, frequency, incontinence, hematuria, urinary retention. MUSCULOSKELETAL: denies weakness, joint pain, or bony pain SKIN: Denies rash, skin lesions, or other NEUROLOGIC: Denies weakness, headache, numbness, change in speech, confusion, seizures, incoordination. PSYCHIATRIC: No concerning psychosocial issues. 12 point review of systems is negative except for those stated above Patient History Medical History Abnormal LFTs Anesthesia Anxiety Asthma (1947) Cervical somatic dysfunction Chicken pox (1948) Cranial somatic dysfunction Cystocele Diabetes mellitus type II, controlled (2011) Dizziness after extension of neck Easy bruisability Eczema (1947) Sussy-Danlos disease Gastric polyps (2010) GERD (gastroesophageal reflux disease) (1989) History of gastric polyp Hx of hiatal hernia Hypercalcemia (09/27/15) Hyperlipidemia (09/10/16) Iron deficiency Iron deficiency anemia (09/11/17) Left carpal tunnel syndrome Measles (1951) Menopause present (03/12/11) Mumps (1952) Neck stiffness Osteoarthritis (~1999) Osteoarthritis Osteopenia Radicular pain of right lower back (04/11/15) Raynaud's syndrome (03/12/11) RLS (restless legs syndrome) Sinus drainage Thoracic region somatic dysfunction Upper extremity somatic dysfunction Urethra, ectopic Surgical History Anesthesia complication Status post arthroscopy (01/2014) Status post arthroscopy (2010) Status post cholecystectomy (2006) Status post colonoscopy (2011) Status post hysterectomy (2004) Family History Brother Kidney disease Diabetes mellitus Chronic ITP (idiopathic thrombocytopenia) Father Cancer Mother Cancer Heart disease High cholesterol Liver failure Grandfather Diabetes mellitus Grandmother Pneumonia Grandmother Pneumonia Social History marital status: number of children: 5 household members: spouse lives independently: Yes caregiver/support person: No housing: house pets and animals: Yes education level: college (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 Extraoccular muscles are intact bilaterally. There is no subconjunctival hemorrhage or exudate. CHEST: Lungs are clear to auscultation bilaterally and free of wheezes, rales, or rhonchi. Heart rate is regular rhythm, there are no murmurs, clicks, rubs, or gallops. There is no chest wall tenderness. ABD: Abdomen is soft and nontender. There is no guarding or rebound. Bowel sounds are normal in all 4 quadrants. There is no mass or organomegaly. EXT: Full painless ROM of all extremities with no loss of sensation or strength. SKIN: Warm, pink, and dry. No erythema or rash Initial Vital Signs Initial Vital Signs: Vital Signs Pulse Oximetry 95 11/28/22 23:44 Course Orders Ordered: ED Orders 11/29/22 00:09 XR acute abdomen series Stat Vital Signs Vital signs: Vital Signs - 8 hr 11/28/22 23:46 11/28/22 23:44 11/28/22 23:45 Temperature 97.8 F Pulse Rate 78 75 Respiratory Rate 16 Blood Pressure 127/98 H Pulse Oximetry 98 95 99 Oxygen Delivery Method Room Air 11/28/22 23:45 11/29/22 00:00 11/29/22 00:00 Temperature Pulse Rate 74 Respiratory Rate Blood Pressure 127/98 H 140/75 Pulse Oximetry 98 Oxygen Delivery Method 11/29/22 00:43 11/29/22 00:44 11/29/22 00:44 Temperature Pulse Rate 74 74 Respiratory Rate Blood Pressure 142/66 H Pulse Oximetry 97 100 Oxygen Delivery Method 11/29/22 01:06 Temperature Pulse Rate 71 Respiratory Rate 16 Blood Pressure 126/95 H Pulse Oximetry 98 Oxygen Delivery Method Room Air Medical Decision Making MDM Narrative Medical decision making narrative: [77] year old patient presents with an episode of abdominal pain that has resolved Multiple etiologies for patient's symptoms considered including, but not limited to: [Bowel obstruction versus volvulus versus esophageal spasm versus other] Prior Charts reviewed in our EMR Primary Historian: patient Imaging reviewed: IMPRESSION: Moderate colonic stool consistent with constipation. No obstruction. Patient with reassuring history and physical exam and improvement of symptoms p rior to arrival. Her abdomen is soft and nontender. Imaging demonstrates no abnormal findings. Findings and discharge diagnosis discussed with patient/family followed by verbalization of understanding Return precautions discussed with patient/family whom verbalize understanding of diagnosis and plan IMPRESSION:? Moderate colonic stool consistent with constipation.? No obstruction. Discharge Plan Departure Patient Disposition: Home Clinical Impression: Abdominal pain Instructions: DI for Abdominal Pain-Adult Activity Restrictions/Additional Instructions: *You have been diagnosed with [abdominal pain resolved] *What to do: *Please continue to take your regular medications as directed. *Please follow up with your primary care provider in 2-3 days, call for an appointment. Let them know you were seen in the Emergency Department and that we ask that you be seen in follow up. We will electronically transmit a record of today's note if your PCP is in our system *Return to Emergency Department if you should have any new, worsening or concerning symptoms, such as [fever greater than 101 F, shaking chills, worsening pain, persistent vomiting or other bothersome symptoms] Radiographic study has been interpreted by an emergency physician. The official diagnosis by radiology will be performed within the next 24 hours and should there be any change in outcome we will notify you of how to proceed. Prescriptions: No Action aspirin [Eula Low Dose Aspirin] 81 mg Tablet,Delayed Release (Dr/Ec) 81 mg PO DAILY Qty: 0 krill oil 500 mg Capsule 500 mg PO DAILY Qty: 0 fexofenadine 60 MG tablet 60 mg PO Q DAY PRN (Reason: Itching) Qty: 30 estradiol 0.01 % (0.1 mg/gram) cream See Rx Instructions .ROUTE .COMPLEX Qty: 42.5 2RF Dose Instruction: apply fingertip amount (1 gram) to the urethra daily for a least eightweeks Rx Instructions: apply fingertip amount (1 gram) to the urethra daily for a least eightweeks (DME) blood-glucose meter [Blood Glucose Monitoring] Kit See Rx Instructions .Route Qty: 1 0RF Rx Instructions: Use to check blood glucose daily. BRAND PER INSURANCE (DME) Blood Glucose Test Strip See Rx Instructions .ROUTE .MEDSUPPLY Qty: 100 3RF Rx Instructions: Use as directed to check blood glucose daily or as directed, Brand per insurance (DME) blood-glucose meter Mis See Rx Instructions .ROUTE .MEDSUPPLY Qty: 1 0RF Rx Instructions: Use to check blood glucose daily, pt prefers Accucheck, Brand per insurance ([facility] [place] Blood Glucose Test Strip See Rx Instructions .Route Qty: 50 3RF Rx Instructions: Use to check blood glucose once daily. Brand per insurance. albuterol sulfate 2.5 mg /3 mL (0.083 %) solution for nebulization 2.5 mg inhalation Q4-6H PRN (Reason: SOB, wheezing, cough) Qty: 90 1RF ipratropium bromide 42 mcg (0.06 %) spray,non-aerosol See Rx Instructions .ROUTE .COMPLEX Qty: 15 11RF Dose Instruction: Instill 2 sprays in each nostril three times daily as needed for runny nose. Rx Instructions: Instill 2 sprays in each nostril three times daily as needed for runny nose. trazodone 50 mg tablet See Rx Instructions .ROUTE .COMPLEX Qty: 180 3RF Dose Instruction: TAKE 1 TO 2 TABLETS BY MOUTH AT BEDTIME NEEDED FOR INSOMNIA Rx Instructions: TAKE 1 TO 2 TABLETS BY MOUTH AT BEDTIME NEEDED FOR INSOMNIA pravastatin 20 mg tablet See Rx Instructions .ROUTE .COMPLEX Qty: 90 3RF Dose Instruction: TAKE 1 TABLET BY MOUTH EVERY DAY AT BEDTIME Rx Instructions: TAKE 1 TABLET BY MOUTH EVERY DAY AT BEDTIME NEBULIZER MASK ADULT See Rx Instructions .ROUTE .COMPLEX Qty: 1 0RF Dose Instruction: Use as directed. Rx Instructions: Use as directed. betamethasone dipropionate 0.05 % cream See Rx Instructions .ROUTE .COMPLEX Qty: 15 2RF Dose Instruction: Apply 1 application to the affected area(s) topically twice daily as needed for skin irritation. Rx Instructions: Apply 1 application to the affected area(s) topically twice daily as needed for skin irritation. Trimo-Mandel Jelly 0.025-0.01 % gel See Rx Instructions .ROUTE .COMPLEX Qty: 113.4 3RF Dose Instruction: DIRECTED FOR USE WITH PESSARY, VAGINAL Rx Instructions: DIRECTED FOR USE WITH PESSARY, VAGINAL ([facility] [place] lancets [facility] [place] See Rx Instructions .ROUTE .MEDSUPPLY Qty: 1 3RF Rx Instructions: Use to check blood glucose once daily, BRAND PER INSURANCE or Fast Clix Lancet drum, 90 day supply valacyclovir 1 gram tablet See Rx Instructions .ROUTE .COMPLEX Qty: 30 2RF Dose Instruction: Take as needed for cold sores. Take 2 tablets by mouth at onset of symptoms, followed by 1 tablet by mouth twice daily until symptoms resolved. Rx Instructions: Take as needed for cold sores. Take 2 tablets by mouth at onset of symptoms, followed by 1 tablet by mouth twice daily until symptoms resolved. omeprazole 40 mg capsule,delayed release(DR/EC) 40 mg PO DAILY Qty: 180 2RF Garden of Life Iron See Rx Instructions PO DAILY Rx Instructions: Take 1 daily for iron replacement cholecalciferol (vitamin D3) 50 mcg (2,000 unit) capsule 50 mcg PO DAILY Qty: 180 0RF Rx Instructions: Take 1 capsule twice per day for osteoporosis bupropion HCl 300 mg tablet extended release 24 hr 300 mg PO QAM Qty: 90 3RF alprazolam 0.25 mg tablet 0.25 mg PO DAILY PRN (Reason: anxiety) Qty: 30 1RF Rx Instructions: Take 1 tab daily as needed for anxiety Naltrexone See Rx Instructions .ROUTE .COMPLEX Qty: 90 3RF Rx Instructions: Take 3mg tab daily; [facility] Referrals: Autumn Neves ARNP [Primary Care Provider] - Stand Alone Forms: Patient Portal/API
[2022-11-29] VITALS: BP 140/75; PULSE 74; O2SAT 98
--- NOTE | 2022-11-29 00:09 | DI.RAD.S_ITS ---
PROCEDURE: XR ACUTE ABDOMEN SERIES INDICATIONS: abdominal pain TECHNIQUE: One view chest and two views of the abdomen were acquired. COMPARISON: None. FINDINGS: Surgical changes and devices: Cholecystectomy clips. Chest: Lungs are clear. Heart size is normal. No pleural effusions. No pneumoperitoneum. Hernia is present. Abdomen: Bowel gas pattern is normal. Moderate colonic stool. No suspicious calcifications. Visualized solid organ contours appear normal. Bones: No suspicious bony lesions. IMPRESSION: Moderate colonic stool consistent with constipation. No obstruction. Dictated by: Velia Palmer M.D. on 11/29/2022 at 1:10 Approved by: Velia Palmer M.D. on 11/29/2022 at 1:11
[2022-11-29 00:43] VITALS: PULSE 74; O2SAT 97
[2022-11-29 00:44] VITALS: BP 142/66; PULSE 74; O2SAT 100
[2022-11-29 01:06] VITALS: BP 126/95; PULSE 71; RESP 16; O2SAT 98
== END 2022-11-29 01:07 | disposition home or self-care (01) ==
PROVIDERS: Emergency Provider Emergency Medicine; PCP Nurse Practitioner
DX: R10.9 Unspecified abdominal pain (principal)
CPT/HCPCS: 74022; 99282; 99283

== ENCOUNTER → 2023-04-17 11:13 | Outpatient (CLI) | payer MEDICARE, OTHER, SELFPAY ==
[2023-04-17 12:08] LABS: Add Manual Diff / Slide Review NO; Basophils Absolute Auto 200 /uL (0-100); Eosinophils Absolute Auto 0 /uL (0-450); Eosinophils Percent Auto 0.7 % (2-4); Hematocrit 42.7 % (36-46); Hemoglobin 14.5 g/dL (12.0-16.0); Lymphocytes Absolute Auto 1200 /uL (1100-4500); Lymphocytes Percent Auto 22.1 % (25-40); Mean Corpuscular HGB Conc 33.9 % (30-36); Mean Corpuscular Hemoglobin 29.4 PG (26-34); Mean Corpuscular Volume 86.7 fL (80-100); Monocytes Absolute Auto 400 /uL (0-900); Monocytes Percent Auto 6.5 % (3-14); Neutrophils Absolute Auto 3800 /uL (1500-7000); Neutrophils Percent Auto 67.7 % (50-75); Platelet Count 217 X10^3/uL (150-400); Red Blood Cell Count 4.93 X10^6/uL (4.0-5.2); Red Cell Distribution Width 12.7 % (11.6-14.8); White Blood Cell Count 5.7 X10^3/uL (4.5-11.0)
[2023-04-17 12:17] LABS: Hemoglobin A1C% w Est Avg Glu 5.3 % (4.0-6.0)
[2023-04-17 12:28] LABS: HEMOLYSIS < 15 (0-50); Iron 135 ug/dL (37-170)
[2023-04-17 12:38] LABS: Alanine Aminotransferase 12 IU/L (<35); Albumin 4.4 g/dL (3.5-5.0); Albumin Globulin Ratio 1.5 (1.0-2.8); Alkaline Phosphatase 62 U/L (38-126); Aspartate Aminotransferase 24 IU/L (14-36); BUN Creatinine Ratio 15.2 (6-22); Bilirubin Total 0.9 mg/dL (0.2-1.3); Blood Urea Nitrogen 12 mg/dL (7-17); Calcium 11.2 mg/dL (8.4-10.2); Carbon Dioxide 29 mmol/L (22-32); Chloride 103 mmol/L (98-107); Cholesterol 202 mg/dL (140-199); Estimated Glomerular Filt Rate > 60 mL/min (>60); Glucose 109 mg/dL (80-110); HEMOLYSIS < 15 (0-50); Potassium 4.7 mmol/L (3.4-5.1); Sodium 137 mmol/L (137-145); Total Protein 7.4 g/dL (6.3-8.2); Triglycerides 96 mg/dL (35-150)
[2023-04-17 12:42] LABS: Percent Iron Saturation 42 % (15-50); Total Iron Binding Capacity 322 ug/dL (265-497); Transferrin 286 mg/dL (206-381)
[2023-04-17 12:47] LABS: Free T3, Triiodothyronine Free 3.52 pg/mL (2.77-5.27); Free T4, Direct Thyroxine 1.14 ng/dL (0.78-2.19)
[2023-04-17 12:58] LABS: HDL Cholesterol 125 mg/dL (40-60); LDL Cholesterol Calculated 58 mg/dL (<100)
[2023-04-17 13:00] LABS: Thyroid Stimulating Hormone 0.071 uIU/mL (0.47-4.68)
== END ==
PROVIDERS: PCP Nurse Practitioner; Referring Provider Nurse Practitioner; Visit Provider Nurse Practitioner
DX: D64.9 Anemia, unspecified (principal); E11.9 Type 2 diabetes mellitus without complications; E78.5 Hyperlipidemia, unspecified; E83.52 Hypercalcemia; D50.9 Iron deficiency anemia, unspecified; F41.8 Other specified anxiety disorders; Z79.899 Other long term (current) drug therapy
CPT/HCPCS: 36415; 80053; 80061; 83036; 83540; 83550; 84439; 84443; 84481; 85025

== ENCOUNTER → 2023-04-21 12:10 | Outpatient (CLI) | payer MEDICARE, OTHER, SELFPAY ==
[2023-04-23 08:54] LABS: Calcium 10.3 mg/dL (8.7-10.3); Parathyroid Hormone, Intact 39 pg/mL (15-65)
== END ==
PROVIDERS: PCP Nurse Practitioner; Referring Provider Nurse Practitioner; Visit Provider Nurse Practitioner
DX: E83.52 Hypercalcemia (principal)
CPT/HCPCS: 36415; 82310; 83970

== ENCOUNTER → 2023-05-05 10:12 | Outpatient (CLI) | payer MEDICARE, OTHER, SELFPAY ==
--- NOTE | 2023-05-05 10:13 | DI.MG.S_ITS ---
BILATERAL DIGITAL DIAGNOSTIC MAMMOGRAM 3D/2D: 05/05/2023 CLINICAL: Breast lesion. Comparison is made to exams dated: 08/05/2022 mammogram, 07/03/2021 mammogram, and 06/23/2020 mammogram - [facility]. Both breasts are heterogeneously dense, which may obscure small masses (category c / 51-75% glandular tissue). No significant masses, calcifications, or other findings are seen in either breast. Benign vascular calcifications in the right breast. Skin marker at the right breast 2:00 region anterior depth. No underlying mass. IMPRESSION: BENIGN There is no mammographic evidence of malignancy. Right breast skin lesion. No underlying mass or suspicious calcifications. A 1 year screening mammogram is recommended. Based on the Tyrer Cuzick model (a risk assessment model) the patient's lifetime risk is 4.3% and her 10 year risk is 0.0%. According to the ACR, ACS, and NCCN guidelines, an annual breast MRI exam along with mammogram is recommended if the patient's lifetime risk is 20% or greater. This exam was interpreted at Station ID: [id number]. NOTE: For mammograms, a report in lay terms will be sent to the patient. Approximately 15% of breast malignancies will not be visualized mammographically. In the management of a palpable breast mass, a negative mammogram must not discourage biopsy of a clinically suspicious lesion. Electronically Signed By: Dg Correia M.D. slc/:05/05/2023 12:05:48 letter sent: Normal Exam ACR BI-RADS Category 2: Benign Finding(s) 3342F
== END ==
PROVIDERS: PCP Nurse Practitioner; Referring Provider Nurse Practitioner; Visit Provider Nurse Practitioner
DX: N64.9 Disorder of breast, unspecified (principal); L98.8 Other specified disorders of the skin and subcutaneous tissue
CPT/HCPCS: 77066; G0279

== ENCOUNTER → 2023-05-29 10:51 | Outpatient (CLI) | payer MEDICARE, OTHER, SELFPAY ==
--- NOTE | 2023-05-29 10:53 | DI.RAD.S_ITS ---
Bone Density Report Name: CHIDI BYERS Age: 78 Sex: Female Ethnicity: White Date of : 1945 Indication: osteopenia; Referring Provider: AVRIL CEBALLOS Study: Bone densitometry was performed. Exam Date: May 29, 2023 Accession number: [id number] Bone Density: Region BMD T-score Z-score Classification AP Spine(L1-L4) 0.754 -2.7 -0.1 Osteoporosis Femoral Neck (Left) 0.628 -2.0 0.2 Osteopenia Total Hip (Left) 0.703 -2.0 -0.1 Osteopenia Femoral Neck (Right) 0.612 -2.1 0.0 Osteopenia Total Hip (Right) 0.684 -2.1 -0.2 Osteopenia Total Hip Mean 0.693 -2.1 -0.2 Osteopenia World Health Organization criteria for BMD impression classify patients as: Normal (T-score at or above -1.0), Osteopenia (T-score between -1.0 and -2.5), or Osteoporosis (T-score at or below -2.5). 10-year Fracture Risk: FRAX not reported because: Some T-score for Spine Total or Hip Total or Femoral Neck at or below -2.5 Previous Exams: -- Region Exam Age BMD T-score BMD Change BMD Change Date g/cm2 vs Baseline vs Previous -- AP Spine (L1-L4) 05/29/2023 78 0.754 -2.7 -0.183 (-19.5%)# -0.063 (-7.7%)# 05/21/2021 76 0.817 -2.1 -0.120 (-12.8%)* -0.011 (-1.3%) 05/19/2019 74 0.828 -2.0 -0.109 (-11.6%)* -0.039 (-4.5%)* 10/03/2015 70 0.868 -1.6 -0.069 (-7.4%)* -0.003 (-0.3%) 08/30/2012 67 0.871 -1.6 -0.066 (-7.1%)* -0.011 (-1.3%) 09/02/2010 65 0.882 -1.5 -0.055 (-5.9%)* -0.055 (-5.9%)* 09/03/2004 59 0.937 -1.0 Total Hip(Left) 05/29/2023 78 0.703 -2.0 -0.278 (-28.4%)# -0.044 (-5.9%)# 05/21/2021 76 0.747 -1.6 -0.234 (-23.9%)* 0.001 (0.1%) 05/19/2019 74 0.746 -1.6 -0.235 (-24.0%)* -0.064 (-7.9%)* 10/03/2015 70 0.810 -1.1 -0.171 (-17.5%)* -0.050 (-5.8%)* 08/30/2012 67 0.860 -0.7 -0.121 (-12.4%)* -0.048 (-5.3%)* 09/02/2010 65 0.908 -0.3 -0.073 (-7.5%)* -0.073 (-7.5%)* 09/03/2004 59 0.981 0.3 Total Hip(Right) 05/29/2023 78 0.684 -2.1 -0.270 (-28.3%)# -0.042 (-5.7%)# 05/21/2021 76 0.725 -1.8 -0.228 (-24.0%)* -0.001 (-0.1%) 05/19/2019 74 0.726 -1.8 -0.228 (-23.9%)* -0.047 (-6.0%)* 10/03/2015 70 0.773 -1.4 -0.181 (-19.0%)* -0.107 (-12.2%)* 08/30/2012 67 0.880 -0.5 -0.074 (-7.7%)* -0.011 (-1.3%) 09/02/2010 65 0.891 -0.4 -0.062 (-6.5%)* -0.062 (-6.5%)* 09/03/2004 59 0.954 0.1 -- *Denotes significance at 95% confidence level, LSC for AP Spine = 0.022 g/cm2, LSC for Total Hip = 0.027 g/cm2 # Denotes dissimilar scan types or analysis methods Impression: The patient has osteoporosis, based on the Total Spine T-score. No significant bone loss was observed. Discussion: INCREASED RISK OF FRACTURE. BONE DENSITY IS UNDESIRABLY LOW AT ONE OR MORE SKELETAL SITES, CONSISTENT WITH POSTMENOPAUSAL OSTEOPOROSIS. This patient's lowest T-score meets the World Health Organization's (WHO) criteria for osteoporosis at one or more sites (T-score -2.5 or below). In untreated patients, the risk of osteoporotic fracture increases approximately two-fold for each 1.0 SD decrease in T-score. Low bone density is not the only risk factor for fracture; also consider factors such as patient's age, frailty or poor health, risk of falling, risk of injury, previous osteoporotic fracture, family history of osteoporosis, cigarette smoking, low body weight, etc. Not everyone with low bone mineral density has osteoporosis; osteomalacia and other metabolic bone disorders should also be considered. Patients who have osteoporosis should be evaluated for specific diseases and conditions (secondary causes) that may cause or contribute to bone loss. The [place] Association of Clinical Endocrinologists (AACE) and National Osteoporosis Foundation (NOF) recommend pharmacologic intervention for all postmenopausal women whose T-score is in this range. The patient should follow a healthful lifestyle (good nutrition with adequate calcium and vitamin D, and appropriate weight-bearing exercise). Follow-Up: Consider a repeat BMD and Vertebral Fracture Assessment (VFA) exam in 2 years or sooner if medically necessary, to reassess this patient's status. Reported by: BOOGIE THORNTON M.D. on 05/29/2023 11:23:00 AM.
== END ==
LOC: RAD 10:53
PROVIDERS: PCP Nurse Practitioner; Referring Provider Nurse Practitioner; Visit Provider Nurse Practitioner
DX: M81.0 Age-related osteoporosis without current pathological fracture (principal)
CPT/HCPCS: 77080

== ENCOUNTER → 2023-06-03 09:07 | Outpatient (CLI) | payer MEDICARE, OTHER, SELFPAY ==
[2023-06-03 11:11] LABS: Alanine Aminotransferase 14 IU/L (<35); Albumin 4.1 g/dL (3.5-5.0); Albumin Globulin Ratio 1.3 (1.0-2.8); Alkaline Phosphatase 69 U/L (38-126); BUN Creatinine Ratio 19.7 (6-22); Bilirubin Total 0.8 mg/dL (0.2-1.3); Blood Urea Nitrogen 12 mg/dL (7-17); Calcium 10.6 mg/dL (8.4-10.2); Carbon Dioxide 25 mmol/L (22-32); Chloride 101 mmol/L (98-107); Estimated Glomerular Filt Rate > 60 mL/min (>60); Globulin 3.2 g/dL (1.7-4.1); Glucose 96 mg/dL (80-110); HEMOLYSIS < 15 (0-50); Potassium 4.2 mmol/L (3.4-5.1); Sodium 135 mmol/L (137-145); Total Protein 7.3 g/dL (6.3-8.2)
[2023-06-04 08:13] LABS: Calcium 10.4 mg/dL (8.7-10.3); Parathyroid Hormone, Intact 32 pg/mL (15-65)
[2023-06-05 16:00] LABS: Aspartate Aminotransferase 27 IU/L (14-36)
== END ==
LOC: LAB 09:09
PROVIDERS: PCP Nurse Practitioner; Referring Provider Nurse Practitioner; Visit Provider Nurse Practitioner
DX: M81.0 Age-related osteoporosis without current pathological fracture (principal)
CPT/HCPCS: 36415; 80053; 82306; 82310; 83970

== ENCOUNTER → 2023-07-02 14:58 | Outpatient (CLI) | payer MEDICARE, OTHER, SELFPAY ==
[2023-07-02 17:08] LABS: Alanine Aminotransferase 13 IU/L (<35); Albumin 4.3 g/dL (3.5-5.0); Albumin Globulin Ratio 1.3 (1.0-2.8); Alkaline Phosphatase 63 U/L (38-126); Aspartate Aminotransferase 27 IU/L (14-36); BUN Creatinine Ratio 24.1 (6-22); Bilirubin Total 0.6 mg/dL (0.2-1.3); Blood Urea Nitrogen 14 mg/dL (7-17); Calcium 10.9 mg/dL (8.4-10.2); Carbon Dioxide 30 mmol/L (22-32); Chloride 101 mmol/L (98-107); Estimated Glomerular Filt Rate > 60 mL/min (>60); Globulin 3.3 g/dL (1.7-4.1); Glucose 94 mg/dL (80-110); HEMOLYSIS < 15 (0-50); Potassium 4.6 mmol/L (3.4-5.1); Sodium 136 mmol/L (137-145); Total Protein 7.6 g/dL (6.3-8.2)
== END ==
PROVIDERS: PCP Nurse Practitioner; Referring Provider Nurse Practitioner; Visit Provider Nurse Practitioner
DX: M81.0 Age-related osteoporosis without current pathological fracture (principal)
CPT/HCPCS: 36415; 80053

== ENCOUNTER → 2023-10-20 07:40 | Outpatient (CLI) | payer MEDICARE, OTHER, SELFPAY ==
[2023-10-20 08:35] LABS: Add Manual Diff / Slide Review NO; Basophils Absolute Auto 200 /uL (0-100); Basophils Percent Auto 3.5 % (0-2); Eosinophils Absolute Auto 100 /uL (0-450); Eosinophils Percent Auto 2.3 % (2-4); Hematocrit 40.7 % (36-46); Lymphocytes Absolute Auto 1400 /uL (1100-4500); Lymphocytes Percent Auto 31.9 % (25-40); Mean Corpuscular HGB Conc 34.3 % (30-36); Mean Corpuscular Hemoglobin 29.6 PG (26-34); Mean Corpuscular Volume 86.3 fL (80-100); Monocytes Absolute Auto 300 /uL (0-900); Monocytes Percent Auto 7.4 % (3-14); Neutrophils Absolute Auto 2400 /uL (1500-7000); Neutrophils Percent Auto 54.9 % (50-75); Platelet Count 176 X10^3/uL (150-400); Red Blood Cell Count 4.72 X10^6/uL (4.0-5.2); Red Cell Distribution Width 12.8 % (11.6-14.8); White Blood Cell Count 4.4 X10^3/uL (4.5-11.0)
[2023-10-20 09:05] LABS: HEMOLYSIS < 15 (0-50); Iron 119 ug/dL (37-170)
[2023-10-20 09:07] LABS: Alanine Aminotransferase 11 IU/L (<35); Albumin 4.3 g/dL (3.5-5.0); Albumin Globulin Ratio 1.8 (1.0-2.8); Alkaline Phosphatase 46 U/L (38-126); Aspartate Aminotransferase 24 IU/L (14-36); Bilirubin Total 0.9 mg/dL (0.2-1.3); Blood Urea Nitrogen 14 mg/dL (7-17); Calcium 10.1 mg/dL (8.4-10.2); Carbon Dioxide 28 mmol/L (22-32); Chloride 105 mmol/L (98-107); Cholesterol 172 mg/dL (140-199); Estimated Glomerular Filt Rate > 60 mL/min (>60); Globulin 2.4 g/dL (1.7-4.1); Glucose 109 mg/dL (80-110); HEMOLYSIS < 15 (0-50); Potassium 4.5 mmol/L (3.4-5.1); Sodium 137 mmol/L (137-145); Total Protein 6.7 g/dL (6.3-8.2); Triglycerides 62 mg/dL (35-150)
[2023-10-20 09:17] LABS: Percent Iron Saturation 41 % (15-50); Total Iron Binding Capacity 287 ug/dL (265-497); Transferrin 229 mg/dL (206-381)
[2023-10-20 09:26] LABS: Free T3, Triiodothyronine Free 4.83 pg/mL (2.77-5.27); Free T4, Direct Thyroxine 0.86 ng/dL (0.78-2.19)
[2023-10-20 09:40] LABS: Thyroid Stimulating Hormone 0.032 uIU/mL (0.47-4.68)
[2023-10-20 09:54] LABS: HDL Cholesterol 116 mg/dL (40-60); LDL Cholesterol Calculated 44 mg/dL (<100)
[2023-10-20 10:00] LABS: Vitamin B12 800 pg/mL (239-931)
[2023-10-20 12:14] LABS: Creatinine Urine Random 49.25 mg/dL
[2023-10-20 12:19] LABS: Microalbumin Urine Random 1.1 mg/dL (0-1.6)
== END ==
LOC: LAB 07:41
PROVIDERS: PCP Nurse Practitioner; Referring Provider Nurse Practitioner; Visit Provider Nurse Practitioner
DX: E61.1 Iron deficiency (principal); E11.9 Type 2 diabetes mellitus without complications; E78.5 Hyperlipidemia, unspecified; M81.0 Age-related osteoporosis without current pathological fracture; D50.9 Iron deficiency anemia, unspecified; E83.52 Hypercalcemia
CPT/HCPCS: 36415; 80053; 80061; 82043; 82310; 82570; 82607; 83036; 83540; 83550; 83970; 84439; 84443; 84481; 85025

== ENCOUNTER → 2024-02-03 10:17 | Outpatient (CLI) | payer MEDICARE, OTHER, SELFPAY ==
[2024-02-03 12:40] LABS: Blood Urea Nitrogen 12 mg/dL (7-17); Calcium 10.6 mg/dL (8.4-10.2); Carbon Dioxide 28 mmol/L (22-32); Chloride 101 mmol/L (98-107); Estimated Glomerular Filt Rate > 60 mL/min (>60); Glucose 95 mg/dL (80-110); HEMOLYSIS < 15 (0-50); Potassium 4.6 mmol/L (3.4-5.1); Sodium 135 mmol/L (137-145)
== END ==
LOC: LAB 10:18
PROVIDERS: PCP Internal Medicine; Referring Provider Nurse Practitioner; Visit Provider Nurse Practitioner
DX: Z01.812 Encounter for preprocedural laboratory examination (principal); M81.0 Age-related osteoporosis without current pathological fracture
CPT/HCPCS: 36415; 80048

== ENCOUNTER → 2024-03-11 19:53 | Outpatient (CLI) | payer MEDICARE, OTHER, SELFPAY | PROVIDERS: PCP Internal Medicine; Referring Provider Internal Medicine; Visit Provider Internal Medicine | DX: Z23 Encounter for immunization (principal) | CPT/HCPCS: 90471; 90662 ==

== ENCOUNTER → 2024-03-28 07:12 | Outpatient (CLI) | payer MEDICARE, OTHER, SELFPAY ==
--- NOTE | 2024-03-28 07:14 | DI.CT.S_ITS ---
PROCEDURE: CT ABDOMEN PELVIS W CON INDICATIONS: RIGHT LOWER QUADRANT ABDOMINAL PAIN. TECHNIQUE: After the administration of intravenous contrast, axial sections acquired from the lung bases to the pubic symphysis. Coronal and sagittal reformats were performed. For radiation dose reduction, the following was used: automated exposure control, adjustment of mA and/or kV according to patient size. COMPARISON: None. FINDINGS: Image quality: Diagnostic. Lower Chest: No significant findings. ABDOMEN: Liver: No solid mass. Gallbladder: Surgically absent Biliary ducts: No biliary dilation. Pancreas: No ductal dilation. Spleen: Size is within normal limits. Adrenal Glands: No adrenal nodules. Kidneys and Ureters: No hydronephrosis. No solid mass. No complex renal cystic lesion which requires follow up. Stomach and Bowel: Normal colonic caliber, without significant wall thickening. Appendix is not definitively visualized, however there are no acute findings in the right lower quadrant suggest acute appendicitis. Peritoneum: No abnormal intraperitoneal fluid. No free air. Ventral Wall: No significant ventral hernia. Abdominal Nodes: No retroperitoneal or mesenteric adenopathy by size criteria. Vessels: Aorta and inferior vena cava are normal in size. PELVIS: Pelvic Organs: Uterine pessary in place Bladder: No bladder wall thickening, accounting for underdistention. Pelvic Nodes: No enlarged lymph nodes. Miscellaneous: Fat containing right inguinal hernia Bones: No aggressive osseous abnormality. IMPRESSION: No acute process in the abdomen pelvis. Approved by: Josselyn Lee M.D.,Ph.D. on 03/29/2024 at 1:11
[2024-03-28 07:28] LABS: Hematocrit 43.4 % (36-46); Hemoglobin 14.5 g/dL (12.0-16.0); Mean Corpuscular HGB Conc 33.5 % (30-36); Mean Corpuscular Hemoglobin 29.3 PG (26-34); Mean Corpuscular Volume 87.4 fL (80-100); Platelet Count 185 X10^3/uL (150-400); Red Blood Cell Count 4.97 X10^6/uL (4.0-5.2); Red Cell Distribution Width 13.1 % (11.6-14.8); White Blood Cell Count 3.6 X10^3/uL (4.5-11.0)
[2024-03-28 07:39] LABS: HEMOLYSIS < 15 (0-50)
[2024-03-28 07:40] LABS: Alanine Aminotransferase 12 IU/L (<35); Albumin 4.4 g/dL (3.5-5.0); Albumin Globulin Ratio 1.6 (1.0-2.8); Alkaline Phosphatase 46 U/L (38-126); Aspartate Aminotransferase 24 IU/L (14-36); BUN Creatinine Ratio 12.2 (6-22); Bilirubin Total 0.8 mg/dL (0.2-1.3); Blood Urea Nitrogen 10 mg/dL (7-17); Calcium 10.1 mg/dL (8.4-10.2); Carbon Dioxide 27 mmol/L (22-32); Chloride 107 mmol/L (98-107); Estimated Glomerular Filt Rate > 60 mL/min (>60); Globulin 2.8 g/dL (1.7-4.1); Glucose 110 mg/dL (80-110); Sodium 138 mmol/L (137-145); Total Protein 7.2 g/dL (6.3-8.2)
[2024-03-28 07:45] LABS: Potassium 4.9 mmol/L (3.4-5.1)
== END ==
PROVIDERS: PCP Internal Medicine; Referring Provider Internal Medicine; Visit Provider Internal Medicine
DX: K40.90 Unilateral inguinal hernia, without obstruction or gangrene, not specified as recurrent (principal); R10.9 Unspecified abdominal pain; Z90.49 Acquired absence of other specified parts of digestive tract
CPT/HCPCS: 36415; 74177; 80053; 85027; Q9967

== ENCOUNTER 2024-03-28 11:38 | Emergency (ER) | payer MEDICARE, OTHER, SELFPAY ==
--- NOTE | 2024-03-28 11:48 | ED_ITS ---
HPI - Allergic Reaction General Chief complaint: Allergic Reaction Stated complaint: had CT scan, reacting to contrast Time Seen by Provider: 03/28/24 11:48 Source: patient, RN notes reviewed, old records reviewed and other (DI tech) Mode of arrival: Wheelchair Limitations: no limitations History of Present Illness HPI narrative: 78-year-old female who has having a outpatient CT scan with contrast dye who developed read high on the right side of her neck as well as redness streaking across her trachea and upwards. This occurred right after contrast dye she states it is very itchy. States itchiness starting to resolve but is still present. Did not have any other generalized rash or hives, denies any tightness in her airway no difficulty with breathing no changes to speech, no chest pain or shortness of breath, no nausea or vomiting. She states she was feeling improved currently. Has not had any known issues with contrast dye in the past. Does have allergies to sulfa and some antibiotics noted. Related Data Home Medications Medication Instructions Recorded Confirmed krill oil 500 mg capsule 500 mg PO DAILY ##0 03/12/11 03/22/24 Garden of Life Iron See Rx Instructions PO DAILY 09/24/22 03/22/24 Previous Rx's Medication Instructions Recorded blood sugar diagnostic (Blood #100 ea 07/02/21 Glucose Test strips) blood sugar diagnostic (Blood #50 ea 07/02/21 Glucose Test strips) blood-glucose meter #1 ea 07/02/21 blood-glucose meter (Blood Glucose #1 ea 07/02/21 Monitoring kit) cholecalciferol (vitamin D3) 50 50 mcg PO DAILY #180 caps 03/12/22 mcg (2,000 unit) capsule betamethasone dipropionate 0.05 % See Rx Instructions .Route 05/12/22 topical cream .COMPLEX #15 grams lancets #1 pkg 09/22/22 valacyclovir 1 gram tablet See Rx Instructions .Route 09/22/22 .COMPLEX #30 tabs estradiol 0.01% (0.1 mg/gram) See Rx Instructions .Route 12/30/22 vaginal cream .COMPLEX #42.5 grams albuterol sulfate 2.5 mg/3 mL 2.5 mg (3 mL) inhalation Q4-6H PRN 05/13/23 (0.083 %) solution for nebulization SOB, wheezing, cough #90 mL trazodone 50 mg tablet See Rx Instructions .Route 06/12/23 .COMPLEX #180 tabs ipratropium bromide 42 mcg (0.06 2 spray intranasal 3XD PRN allergy 06/22/23 %) nasal spray symptoms #15 mL pravastatin 20 mg tablet See Rx Instructions .Route 06/30/23 .COMPLEX #90 tabs NaturalMotion Calcium See Rx Instructions .Route 10/22/23 .COMPLEX #1 cap clindamycin phosphate 1 % topical 1 applic topical QAM AND QHS #30 10/22/23 gel grams gabapentin 300 mg capsule 300 mg PO BEDTIME #90 caps 10/22/23 NaturalMotion Probiotic Womens See Rx Instructions .Route 12/22/23 Formula .COMPLEX #1 cap buspirone 5 mg tablet See Rx Instructions .Route 12/22/23 .COMPLEX #240 tabs denosumab 60 mg/mL subcutaneous 60 mg SUBCUT [id number] #1 mL 12/22/23 syringe (Prolia) oxyquinoline 0.025 %-sodium lauryl See Rx Instructions .Route 01/13/24 sulfate 0.01 % vaginal gel .COMPLEX #113.4 grams (Trimo-Mandel Jelly) Naltrexone HCL 4.5mg tab See Rx Instructions .Route 01/27/24 .COMPLEX #90 tabs prednisone 20 mg tablet 40 mg (2 x 20 mg) PO DAILY #6 tabs 03/28/24 Allergies Allergy/AdvReac Type Severity Reaction Status Date / Time Sulfa (Sulfonamide Allergy Mild Unknown Verified 03/22/24 15:59 Antibiotics) per pt diclofenac AdvReac Severe Elevated Verified 03/22/24 15:59 [From Inflatherm LFTs, (diclofenac-trolam)] elevated Kidney Function Tests morphine AdvReac Severe N/V Verified 03/22/24 15:59 trolamine salicylate AdvReac Severe Elevated Verified 03/22/24 15:59 [From Inflatherm LFTs, (diclofenac-trolam)] elevated Kidney Function Tests levofloxacin AdvReac Intermediate TENDON AND Verified 03/22/24 15:59 MUSCLE PAIN codeine AdvReac Mild GI UPSET, Verified 03/22/24 15:59 vomiting oxycodone AdvReac Nausea, Verified 03/22/24 15:59 abdominal pain Review of Systems Review of Systems ROS Unobtainable: All systems reviewed & are unremarkable except as noted in HPI and below Patient History Medical History Right rotator cuff tendonitis Functional diarrhea Hiatal hernia with gastroesophageal reflux Osteoporosis Large hiatal hernia Anxiety Osteoarthritis Sussy-Danlos disease Osteopenia Easy bruisability Sinus drainage Anesthesia Hx of hiatal hernia Neck stiffness Cranial somatic dysfunction Cervical somatic dysfunction Thoracic region somatic dysfunction Upper extremity somatic dysfunction Left carpal tunnel syndrome Urethra, ectopic Cystocele Dizziness after extension of neck Chicken pox (1948) Eczema (194) Asthma (1946) Measles (1951) Mumps (1952) Osteoarthritis (~1999) RLS (restless legs syndrome) Gastric polyps (2010) Raynaud's syndrome (03/12/11) Menopause present (03/12/11) GERD (gastroesophageal reflux disease) (1989) Diabetes mellitus type II, controlled (2011) History of gastric polyp Iron deficiency anemia (09/11/17) Hyperlipidemia (09/10/16) Hypercalcemia (09/27/15) Radicular pain of right lower back (04/11/15) Abnormal LFTs Surgical History Anesthesia complication Status post arthroscopy (2010) Status post arthroscopy (01/2014) Status post hysterectomy (2004) Status post colonoscopy (2011) Status post cholecystectomy (2006) Family History Brother Kidney disease Diabetes mellitus Chronic ITP (idiopathic thrombocytopenia) Father Cancer Mother Cancer Heart disease High cholesterol Liver failure Grandfather Diabetes mellitus Grandmother Pneumonia Grandmother Pneumonia Social History marital status: number of children: 5 household members: spouse lives independently: Yes caregiver/support person: No housing: house pets and animals: Yes education level: college (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 HEENT: Atraumatic, pupils are equal round reactive to light, extraocular movements are intact, nares are clear, there is no conjunctival pallor. Throat is clear without any exudates, erythema, tonsillar enlargement or uvular deviation, patient has a large circular hives just posterior and inferior to the right ear, also has erythema streaking up from the neck and across the trachea, no other rash erythema or changes noted. No changes to speech. No stridor. HEART: Regular rate and rhythm without murmur, clicks, rubs. LUNGS:Lungs clear to auscultation, no wheezes, rales, crackles, chest moves symmetrically, no tachypnea or accessory muscle use ABD:bowel sounds normal, soft, non-tender, no guarding, rebound, rigidity, no masses noted, no hepatosplenomegaly MSCL: Non-tender, no muscle atrophy, muscles strength 5/5 upper and lower extremities, full range of motion, normal gait NEURO:CN 2-12 intact, sensation clarisse. SKIN: Other than noted above no other rash, erythema or hives noted. Initial Vital Signs Initial Vital Signs: Vital Signs Temperature 97.9 F 03/28/24 12:06 Pulse Rate 75 03/28/24 12:06 Respiratory Rate 18 03/28/24 12:06 Blood Pressure 189/88 H 03/28/24 12:06 Pulse Oximetry 100 03/28/24 12:06 Oxygen Delivery Method Room Air 03/28/24 12:06 Course Orders Ordered: Discontinued Medications Diphenhydramine HCl (Diphenhydramine 50 Mg/Ml Vial) 50 mg IV NOW ONE Stop: 03/28/24 11:49 Last Admin: 03/28/24 12:24 Dose: 50 mg Documented By: RB Famotidine (Famotidine 20 Mg/2 Ml Vial) 20 mg IV NOW ERIC Last Admin: 03/28/24 12:24 Dose: 20 mg Documented By: RB Methylprednisolone (Methylprednisolone 125 Mg/2 Ml Vial) 125 mg IV NOW ONE Stop: 03/28/24 11:49 Last Admin: 03/28/24 12:25 Dose: 125 mg Documented By: RB Vital Signs Vital signs: Vital Signs - 8 hr 03/28/24 12:06 Temperature 97.9 F Pulse Rate 75 Respiratory Rate 18 Blood Pressure 189/88 H Pulse Oximetry 100 Oxygen Delivery Method Room Air MDM - Allergic Reaction MDM Narrative Medical decision making narrative: Patient has some somewhat localized edema with the hives right ear as well as some streaking up the trachea but no other changes appreciated on exam. She states was very itchy that is improving but skin changes or still present. Patient was given Benadryl, Solu-Medrol and Pepcid. Patient was monitored. Recheck patient has had some improvement there is some erythema but her hives has improved as well as the redness on her neck, no additional symptoms. Discussed with patient for future imaging and when reporting allergies to medications to make sure to report her contrast dye and symptoms. Discussed return precautions all questions answered. Discharge Plan Departure Patient Disposition: Home Clinical Impression: Allergic reaction to contrast dye Instructions: DI for Hives Activity Restrictions/Additional Instructions: You did appear to have a reaction to contrast dye today, you did not have an anaphylactic reaction but you did receive Benadryl and Solu-Medrol as well as Pepcid. In the future for any CT imaging or when asked if you have medication allergies let them know that you did have a reaction to contrast dye. You can take Benadryl 1-2 tablets every 6 hours as needed for symptoms. Short course of prednisone is included. take once daily until gone. Prescription sent to [facility] in [place]. Please return for any new swelling, rash, any swelling or difficulty with breathing in her airway, shortness of breath, chest pain, persistent nausea or vomiting, diarrhea or new rash or hives. Prescriptions: New prednisone 20 mg tablet 40 mg PO DAILY Qty: 6 0RF No Action krill oil 500 mg Capsule 500 mg PO DAILY Qty: 0 ([facility] [place] blood-glucose meter [Blood Glucose Monitoring] Kit See Rx Instructions .Route Qty: 1 0RF Rx Instructions: Use to check blood glucose daily. BRAND PER INSURANCE ([facility] [place]) Blood Glucose Test Strip See Rx Instructions .ROUTE .MEDSUPPLY Qty: 100 3RF Rx Instructions: Use as directed to check blood glucose daily or as directed, Brand per insurance ([facility] [place]) blood-glucose meter [facility] See Rx Instructions .ROUTE .MEDSUPPLY Qty: 1 0RF Rx Instructions: Use to check blood glucose daily, pt prefers Accucheck, Brand per insurance (DME) Blood Glucose Test Strip See Rx Instructions .Route Qty: 50 3RF Rx Instructions: Use to check blood glucose once daily. Brand per insurance. betamethasone dipropionate 0.05 % cream See Rx Instructions .ROUTE .COMPLEX Qty: 15 2RF Dose Instruction: Apply 1 application to the affected area(s) topically twice daily as needed for skin irritation. Rx Instructions: Apply 1 application to the affected area(s) topically twice daily as needed for skin irritation. (DME) lancets Misc See Rx Instructions .ROUTE .MEDSUPPLY Qty: 1 3RF Rx Instructions: Use to check blood glucose once daily, BRAND PER INSURANCE or Fast Clix Lancet drum, 90 day supply valacyclovir 1 gram tablet See Rx Instructions .ROUTE .COMPLEX Qty: 30 2RF Dose Instruction: Take as needed for cold sores. Take 2 tablets by mouth at onset of symptoms, followed by 1 tablet by mouth twice daily until symptoms resolved. Rx Instructions: Take as needed for cold sores. Take 2 tablets by mouth at onset of symptoms, followed by 1 tablet by mouth twice daily until symptoms resolved. estradiol 0.01 % (0.1 mg/gram) cream See Rx Instructions .ROUTE .COMPLEX Qty: 42.5 3RF Dose Instruction: apply fingertip amount (1 gram) to the urethra daily for a least eightweeks Rx Instructions: apply fingertip amount (1 gram) to the urethra daily for a least eightweeks albuterol sulfate 2.5 mg /3 mL (0.083 %) solution for nebulization 2.5 mg inhalation Q4-6H PRN (Reason: SOB, wheezing, cough) Qty: 90 1RF trazodone 50 mg tablet See Rx Instructions .ROUTE .COMPLEX Qty: 180 3RF Dose Instruction: TAKE 1 TO 2 TABLETS BY MOUTH AT BEDTIME NEEDED FOR INSOMNIA Rx Instructions: TAKE 1 TO 2 TABLETS BY MOUTH AT BEDTIME NEEDED FOR INSOMNIA ipratropium bromide 42 mcg (0.06 %) spray,non-aerosol 2 spray intranasal 3XD PRN (Reason: allergy symptoms) Qty: 15 5RF pravastatin 20 mg tablet See Rx Instructions .ROUTE .COMPLEX Qty: 90 3RF Dose Instruction: TAKE 1 TABLET BY MOUTH EVERY DAY AT BEDTIME Rx Instructions: TAKE 1 TABLET BY MOUTH EVERY DAY AT BEDTIME Trimo-Mandel Jelly 0.025-0.01 % gel See Rx Instructions .ROUTE .COMPLEX Qty: 113.4 3RF Dose Instruction: DIRECTED FOR USE WITH PESSARY, VAGINAL Rx Instructions: (2g) of TRIMO-MANDEL 3 times the first week after original insertion of pessary. Use TRIMO-MANDEL (2g) applicator twice a week thereafter unless otherwise directed by your healthcare professional. Naltrexone HCL 4.5mg tab See Rx Instructions .ROUTE .COMPLEX Qty: 90 3RF Rx Instructions: Take 4.5mg tab daily by mouth Garden of Life Iron See Rx Instructions PO DAILY Rx Instructions: Take 1 daily for iron replacement cholecalciferol (vitamin D3) 50 mcg (2,000 unit) capsule 50 mcg PO DAILY Qty: 180 0RF Rx Instructions: Take 1 capsule twice per day for osteoporosis buspirone 5 mg tablet See Rx Instructions .ROUTE .COMPLEX Qty: 240 3RF Rx Instructions: Take 5mg by mouth twice per day, may take an extra dose daily, max dose 3 tabs in 24 hours Garden of Life Probiotic Womens Formula See Rx Instructions .ROUTE .COMPLEX Qty: 1 0RF Rx Instructions: 57145gly 1 capsule daily; Prolia 60 mg/mL syringe 60 mg SUBCUT [id number] Qty: 1 1RF clindamycin phosphate 1 % gel 1 applic topical QAM AND QHS Qty: 30 2RF Garden of Life Calcium See Rx Instructions .ROUTE .COMPLEX Qty: 1 0RF Rx Instructions: Take 1-3 capsules daily; gabapentin 300 mg capsule 300 mg PO BEDTIME Qty: 90 3RF Rx Instructions: RLS Referrals: Moi Melendez MD [Primary Care Provider] - Stand Alone Forms: Patient Portal/API/Survey
[2024-03-28 12:06] VITALS: BP 189/88; PULSE 75; RESP 18; TEMP 36.6; O2SAT 100; BMI 22.2
[2024-03-28] MEDS: FAMOTIDINE 20 MG/2 ML VIAL IV (12:24)
[2024-03-28] MEDS: diphenhydrAMINE 50 MG/ML VIAL IV (12:24)
[2024-03-28] MEDS: methylPREDNISolone 125 MG/2 ML VIAL IV (12:25)
== END 2024-03-28 14:00 | disposition home or self-care (01) ==
PROVIDERS: Emergency Provider Emergency Medicine; PCP Internal Medicine
DX: L50.9 Urticaria, unspecified (principal); R60.0 Localized edema; T50.8X5A Adverse effect of diagnostic agents, initial encounter; K40.90 Unilateral inguinal hernia, without obstruction or gangrene, not specified as recurrent; R10.9 Unspecified abdominal pain; Z90.49 Acquired absence of other specified parts of digestive tract
CPT/HCPCS: 36415; 74177; 80053; 85027; 96374; 96375; 99284; J1200; J2919; Q9967

== ENCOUNTER → 2024-05-28 10:14 | Outpatient (CLI) | payer MEDICARE, OTHER, SELFPAY ==
--- NOTE | 2024-05-28 | DI.MG.S_ITS ---
BILATERAL DIGITAL SCREENING MAMMOGRAM 3D/2D WITH CAD: 05/28/2024 CLINICAL: Routine screening. Comparison is made to exams dated: 05/05/2023 mammogram, 08/05/2022 mammogram, 07/03/2021 mammogram, and 06/23/2020 mammogram - [facility]. The breasts are heterogeneously dense, which may obscure small masses (category c / 51-75% glandular tissue). Current study was also evaluated with a Computer Aided Detection (CAD) system. There are benign calcifications in the right breast. There also are benign vascular calcifications in both breasts. No significant masses, calcifications, or other findings are seen in either breast. There has been no significant interval change. IMPRESSION: BENIGN There is no mammographic evidence of malignancy. A 1 year screening mammogram is recommended. Based on the Tyrer Cuzick model (a risk assessment model) the patient's lifetime risk is 3.4% and her 10 year risk is 0.0%. According to the ACR, ACS, and NCCN guidelines, an annual breast MRI exam along with mammogram is recommended if the patient's lifetime risk is 20% or greater. This exam was interpreted at Station ID: [id number]. NOTE: For mammograms, a report in lay terms will be sent to the patient. Approximately 15% of breast malignancies will not be visualized mammographically. In the management of a palpable breast mass, a negative mammogram must not discourage biopsy of a clinically suspicious lesion. Electronically Signed By: Ashley nevarez/patria:05/30/2024 09:40:29 letter sent: Normal Exam ACR BI-RADS Category 2: Benign
== END ==
PROVIDERS: PCP Internal Medicine; Referring Provider Internal Medicine; Visit Provider Internal Medicine
DX: Z12.31 Encounter for screening mammogram for malignant neoplasm of breast (principal); R92.333 Mammographic heterogeneous density, bilateral breasts
CPT/HCPCS: 77063; 77067

== ENCOUNTER → 2024-08-01 09:40 | Outpatient (CLI) | payer MEDICARE, OTHER, SELFPAY ==
[2024-08-01 10:29] LABS: Hemoglobin A1C% w Est Avg Glu 4.8 % (4.0-6.0)
[2024-08-01 10:52] LABS: Aspartate Aminotransferase 29 IU/L (14-36); BUN Creatinine Ratio 17.1 (6-22); Blood Urea Nitrogen 12 mg/dL (7-17); Calcium 10.6 mg/dL (8.4-10.2); Carbon Dioxide 27 mmol/L (22-32); Chloride 104 mmol/L (98-107); Cholesterol 207 mg/dL (140-199); Estimated Glomerular Filt Rate > 60 mL/min (>60); Glucose 107 mg/dL (80-110); HEMOLYSIS < 15 (0-50); Sodium 140 mmol/L (137-145); Triglycerides 56 mg/dL (35-150)
[2024-08-01 11:01] LABS: HDL Cholesterol 126 mg/dL (40-60); LDL Cholesterol Calculated 70 mg/dL (<100)
== END ==
PROVIDERS: PCP Internal Medicine; Referring Provider Internal Medicine; Visit Provider Internal Medicine
DX: E11.69 Type 2 diabetes mellitus with other specified complication (principal); E78.5 Hyperlipidemia, unspecified; E78.2 Mixed hyperlipidemia; E83.52 Hypercalcemia
CPT/HCPCS: 36415; 80048; 80061; 83036; 84450

== ENCOUNTER → 2024-09-05 17:07 | Outpatient (CLI) | payer MEDICARE, OTHER, SELFPAY ==
[2024-09-05 17:23] LABS: Hematocrit 45.2 % (36-46); Hemoglobin 15.1 g/dL (12.0-16.0); Mean Corpuscular HGB Conc 33.4 % (30-36); Mean Corpuscular Hemoglobin 29.3 PG (26-34); Mean Corpuscular Volume 87.8 fL (80-100); Platelet Count 200 X10^3/uL (150-400); Red Blood Cell Count 5.14 X10^6/uL (4.0-5.2); Red Cell Distribution Width 13.3 % (11.6-14.8); White Blood Cell Count 6.1 X10^3/uL (4.5-11.0)
[2024-09-05 17:44] LABS: HEMOLYSIS < 15 (0-50); Iron 104 ug/dL (37-170)
[2024-09-05 17:55] LABS: Percent Iron Saturation 34 % (15-50); Total Iron Binding Capacity 305 ug/dL (265-497); Transferrin 281 mg/dL (206-381)
[2024-09-05 18:21] LABS: Ferritin 34 ng/mL (11-264)
== END ==
PROVIDERS: PCP Internal Medicine; Referring Provider Internal Medicine; Visit Provider Internal Medicine
DX: E61.1 Iron deficiency (principal); G25.81 Restless legs syndrome
CPT/HCPCS: 36415; 82728; 83540; 83550; 85027

== ENCOUNTER → 2024-09-08 16:42 | Outpatient (CLI) | payer MEDICARE, OTHER, SELFPAY ==
--- NOTE | 2024-09-08 16:43 | DI.RAD.S_ITS ---
PROCEDURE: XR HAND RT MIN 3V INDICATIONS: pain /swelling redness to index MCP TECHNIQUE: 3 views of the hand(s) acquired. COMPARISON: None. FINDINGS: Bones: No fractures or dislocations. Moderate diffuse interphalangeal joint space narrowing, marginal osteophytosis and subchondral sclerosis is most severe within the 3rd and 5th distal interphalangeal joints where there is also periarticular erosions. Marked joint space narrowing and subchondral sclerosis is also present at the 3rd metacarpophalangeal joint. Carpal bones are normally aligned. No suspicious bony lesions. Soft tissues: No suspicious soft tissue calcifications. 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 No evidence of acute osseous abnormality. Dictated by: Nimesh Saravia M.D. on 09/10/2024 at 5:55 Approved by: Nimesh Saravia M.D. on 09/10/2024 at 5:57
[2024-09-08 17:05] LABS: Add Manual Diff / Slide Review NO; Basophils Absolute Auto 100 /uL (0-100); Basophils Percent Auto 1.4 % (0-2); Eosinophils Absolute Auto 100 /uL (0-450); Eosinophils Percent Auto 1.6 % (2-4); Hematocrit 42.9 % (36-46); Hemoglobin 14.3 g/dL (12.0-16.0); Lymphocytes Absolute Auto 2000 /uL (1100-4500); Lymphocytes Percent Auto 34.5 % (25-40); Mean Corpuscular HGB Conc 33.4 % (30-36); Mean Corpuscular Hemoglobin 29.3 PG (26-34); Mean Corpuscular Volume 87.7 fL (80-100); Monocytes Absolute Auto 400 /uL (0-900); Neutrophils Absolute Auto 3300 /uL (1500-7000); Neutrophils Percent Auto 56.5 % (50-75); Platelet Count 197 X10^3/uL (150-400); Red Blood Cell Count 4.89 X10^6/uL (4.0-5.2); Red Cell Distribution Width 13.2 % (11.6-14.8); White Blood Cell Count 5.9 X10^3/uL (4.5-11.0)
[2024-09-08 17:19] LABS: Uric Acid 5.1 mg/dL (2.5-6.2)
[2024-09-08 18:31] LABS: Erythrocyte Sedimentation Rate 3 MM/HR (0-20)
== END ==
PROVIDERS: PCP Internal Medicine; Referring Provider Physician Assistant; Visit Provider Physician Assistant
DX: M19.041 Primary osteoarthritis, right hand (principal); M79.646 Pain in unspecified finger(s)
CPT/HCPCS: 36415; 73130; 84550; 85025; 85651